=== PATIENT | female | born 1945 | race Caucasian/White ===

== ENCOUNTER 2017-03-15 18:07 | Emergency (ER) | payer MEDICARE ==
[2017-03-15 20:42] LABS: ADD MAN DIFF? NO
[2017-03-15 20:47] LABS: BASO % 0 % (0-3); EOS # 0.2 x10^3/uL (0.0-0.7); EOS % 2 % (0-3); HEMATOCRIT 40.4 % (36.0-47.0); HEMOGLOBIN 13.8 g/dL (12.0-15.5); LYMPH # 2.6 x10^3/uL (1.0-4.8); LYMPH % 25 % (24-48); MEAN CORPUSCULAR HEMOGLOBIN 32 pg (25-35); MEAN CORPUSCULAR HGB CONC 34 g/dL (31-37); MEAN CORPUSCULAR VOLUME 94 fL (79-100); MONO # 0.8 x10^3/uL (0.0-1.1); MONO % 7 % (0-9); NEUT # 6.9 x10^3uL (1.8-7.7); NEUT % 66 % (31-73); PLATELET COUNT 266 x10^3/uL (140-400); RED CELL DISTRIBUTION WIDTH 12.3 % (11.5-14.5); WHITE BLOOD COUNT 10.6 x10^3/uL (4.0-11.0)
[2017-03-15 20:55] LABS: ANION GAP 8 (6-14); BLOOD UREA NITROGEN 15 mg/dL (7-20); BUN/CREATININE RATIO 19 (6-20); CALCIUM 9.1 mg/dL (8.5-10.1); CARBON DIOXIDE 30 mmol/L (21-32); CHLORIDE 101 mmol/L (98-107); CREATININE 0.8 mg/dL (0.6-1.0); GFR 71.1; GLUCOSE 87 mg/dL (70-99); POTASSIUM 4.1 mmol/L (3.5-5.1); SODIUM 139 mmol/L (136-145)
[2017-03-15 21:01] LABS: ALBUMIN 3.5 g/dL (3.4-5.0); ALBUMIN/GLOBULIN RATIO 0.9 (1.0-1.7); ALK PHOS 86 U/L (46-116); ALT (SGPT) 20 U/L (14-59); AST (SGOT) 25 U/L (15-37); TOTAL BILIRUBIN 0.3 mg/dL (0.2-1.0); TOTAL PROTEIN 7.6 g/dL (6.4-8.2)
[2017-03-15 21:01] LABS: D-DIMER 0.81 ug/mlFEU (0.00-0.50)
[2017-03-15 21:04] LABS: TROPONINI < 0.017 ng/mL (0.000-0.055)
[2017-03-15 21:20] LABS: INFLUENZA A PATIENT NEGATIVE (NEGATIVE); INFLUENZA B PATIENT NEGATIVE (NEGATIVE); OBC FLU VALID
[2017-03-15] MEDS ORDERED: FUROSEMIDE 40 MG/4 ML VIAL. ×2 (21:26)
== END 2017-03-15 21:40 | disposition home or self-care (01) ==
LOC: ER 18:07
DX: J18.9 Pneumonia, unspecified organism (principal); R07.9 Chest pain, unspecified; I10 Essential (primary) hypertension; E11.36 Type 2 diabetes mellitus with diabetic cataract; Z88.0 Allergy status to penicillin; Z90.49 Acquired absence of other specified parts of digestive tract
CPT/HCPCS: 36415; 71046; 72072; 80053; 84484; 85025; 85379; 87804; 87804-59; 93005; 99285-25

== ENCOUNTER → 2017-06-06 | Outpatient (CLI) | payer MEDICARE ==
[~2017-06-06] MED LIST: GADOBUTROL 7.5 MMOL/7.5 ML VIAL IV
== END | disposition home or self-care (01) ==
LOC: MRI 12:26
DX: H91.91 Unspecified hearing loss, right ear (principal); H74.8X3 Other specified disorders of middle ear and mastoid, bilateral
CPT/HCPCS: 70553

== ENCOUNTER → 2017-06-26 | Outpatient (CLI) | payer MEDICARE ==
[~2017-06-26] MED LIST changes: -GADOBUTROL 7.5 MMOL/7.5 ML VIAL IV; +LIDOCAINE 1% Multi-Dose 50 ML VIAL. INJ
== END | disposition home or self-care (01) ==
LOC: US 12:55
DX: C50.912 Malignant neoplasm of unspecified site of left female breast (principal); Z88.0 Allergy status to penicillin; Z88.5 Allergy status to narcotic agent; Z98.42 Cataract extraction status, left eye; Z98.41 Cataract extraction status, right eye; Z96.1 Presence of intraocular lens; I25.10 Atherosclerotic heart disease of native coronary artery without angina pectoris; Z95.5 Presence of coronary angioplasty implant and graft; I10 Essential (primary) hypertension; Z90.49 Acquired absence of other specified parts of digestive tract; Z98.51 Tubal ligation status; M19.90 Unspecified osteoarthritis, unspecified site; F41.9 Anxiety disorder, unspecified; Z72.89 Other problems related to lifestyle; F17.200 Nicotine dependence, unspecified, uncomplicated
CPT/HCPCS: 19081; 19083; 76942; 77065; 88305; 88342; C1713

== ENCOUNTER → 2017-07-17 | Outpatient (CLI) | payer MEDICARE | END | disposition home or self-care (01) | LOC: KCIC CT 10:54 | DX: C34.90 Malignant neoplasm of unspecified part of unspecified bronchus or lung (principal); I25.10 Atherosclerotic heart disease of native coronary artery without angina pectoris; I10 Essential (primary) hypertension; E78.00 Pure hypercholesterolemia, unspecified; Z87.891 Personal history of nicotine dependence | CPT/HCPCS: 71250 ==

== ENCOUNTER 2017-07-31 08:18 | Outpatient (CLI) | payer MEDICARE ==
[2017-07-31 08:41] LABS: ADD MAN DIFF? NO
[2017-07-31 08:44] LABS: BASO # 0.1 x10^3/uL (0.0-0.2); BASO % 1 % (0-3); EOS # 0.1 x10^3/uL (0.0-0.7); EOS % 0 % (0-3); HEMATOCRIT 39.2 % (36.0-47.0); HEMOGLOBIN 13.1 g/dL (12.0-15.5); LYMPH # 1.9 x10^3/uL (1.0-4.8); LYMPH % 13 % (24-48); MEAN CORPUSCULAR HEMOGLOBIN 31 pg (25-35); MEAN CORPUSCULAR HGB CONC 33 g/dL (31-37); MEAN CORPUSCULAR VOLUME 93 fL (79-100); MONO # 1.1 x10^3/uL (0.0-1.1); MONO % 8 % (0-9); NEUT # 11.7 x10^3uL (1.8-7.7); NEUT % 79 % (31-73); PLATELET COUNT 303 x10^3/uL (140-400); RED BLOOD COUNT 4.22 x10^6/uL (3.50-5.40); RED CELL DISTRIBUTION WIDTH 12.8 % (11.5-14.5); WHITE BLOOD COUNT 14.9 x10^3/uL (4.0-11.0)
[2017-07-31 09:01] LABS: INR 1.1 (0.8-1.1); PROTHROMBIN TIME PATIENT 13.5 SEC (11.7-14.0)
[2017-07-31 09:02] LABS: PARTIAL THROMBOPLASTIN TIME 31 SEC (24-38)
[2017-07-31] MEDS ORDERED: LIDOCAINE 2%/EPI 1:100,000 20 ML VIAL. (09:06)
[2017-07-31] MEDS ORDERED: HEPARIN PF 500 UNIT/5 ML DISP.SYRIN. IV (09:07)
[2017-07-31] MEDS ORDERED: MIDAZOLAM HCL/PF 2 MG/2 ML VIAL. (09:33)
[2017-07-31] MEDS ORDERED: fentaNYL PF VIAL 100 MCG/2 ML VIAL (09:34)
[2017-07-31] MEDS: MIDAZOLAM HCL/PF 2 MG/2 ML VIAL. IV (09:45)
[2017-07-31] MEDS: HEPARIN for IV BOLUS 10,000 UNIT/10 ML VIAL. IV (09:45)
[2017-07-31] MEDS: LIDOCAINE 2%/EPI 1:100,000 20 ML VIAL. IJ (09:45)
[2017-07-31] MEDS: fentaNYL PF VIAL 100 MCG/2 ML VIAL IV (09:45)
== END 2017-07-31 12:33 | disposition home or self-care (01) ==
LOC: INTRAD 08:18
DX: Z45.2 Encounter for adjustment and management of vascular access device (principal); C34.90 Malignant neoplasm of unspecified part of unspecified bronchus or lung; Z88.0 Allergy status to penicillin; Z88.5 Allergy status to narcotic agent; Z98.42 Cataract extraction status, left eye; Z98.41 Cataract extraction status, right eye; Z96.1 Presence of intraocular lens; I25.10 Atherosclerotic heart disease of native coronary artery without angina pectoris; Z95.5 Presence of coronary angioplasty implant and graft; I10 Essential (primary) hypertension; Z90.49 Acquired absence of other specified parts of digestive tract; Z98.51 Tubal ligation status; M19.90 Unspecified osteoarthritis, unspecified site; F41.9 Anxiety disorder, unspecified; Z72.89 Other problems related to lifestyle; F17.200 Nicotine dependence, unspecified, uncomplicated; Z79.01 Long term (current) use of anticoagulants
CPT/HCPCS: 36415; 36561; 76937; 77001; 85025; 85610; 85730; 99152; 99153; C1751; C1769; J1644; J1956; J2250; J3010; J3490

== ENCOUNTER → 2017-09-19 | Outpatient (CLI) | payer MEDICARE | END | disposition home or self-care (01) | LOC: US 15:50 | DX: R60.0 Localized edema (principal); I10 Essential (primary) hypertension; E11.9 Type 2 diabetes mellitus without complications; Z87.891 Personal history of nicotine dependence | CPT/HCPCS: 93970 ==

== ENCOUNTER → 2017-09-27 | Outpatient (CLI) | payer MEDICARE ==
[2017-07-31 11:45] VITALS: BP 135/60
[~2017-09-27] MED LIST changes: +ASPI-482 PO; +ATEN25TA PO; +ATOR10TA PO; +CHOL500045 PO; +CONTRAST GIVEN. MC PRN; +DOXY100T PO; +ERGO500027 PO; +FURO-69 PO; +HYDR1AMP2 IJ; +IOHEXOL 300 MG/ML 100ML VIAL. IV ONE; -LIDOCAINE 1% Multi-Dose 50 ML VIAL. INJ; +MULT1TAB52 PO; +ONDA2VIA3 IV; +ONDA4TAB7 PO; +ONDA8TAB9 PO; +OXYC-323 PO; +POTA20TA82 PO; +POTA25TA4 PO; +[UNRECOGNIZED DRUG - CODE] IV
--- NOTE | 2017-09-27 15:12 | RAD ---
CT of the chest with contrast 09/27/2017 INDICATION: Follow-up, small cell carcinoma. History of breast cancer. History of brain mass. COMPARISON STUDY: CT of the chest without contrast July 17, 2017. TECHNIQUE: Multidetector CT imaging of the chest was performed following the administration of IV contrast. FINDINGS: Heart size is normal. No pericardial effusion is identified. Scattered coronary calcification is noted. Thoracic aorta is unremarkable. In the interim since comparison study there is significant decrease in scattered mediastinal adenopathy. This is most evident in the pretracheal and precarinal regions where conglomeration of small lymph nodes has significantly decreased in size in the interim. A small subcarinal node or mass persists but is also significantly decreased in size. The previously seen right hilar mass with postobstructive atelectasis has markedly improved in the interim. In fact, a well-defined mass in the right hilum is not seen on today's study. Some soft tissue thickening surrounding structures of the right hilum remains present. Previously seen middle lobe obstructive atelectasis has essentially resolved in the interim. Areas of subpleural thickening seen in the lateral right upper lobe have also improved. No significant pleural effusion is identified. Severe apical predominant emphysematous changes are stable. No new pulmonary nodules or masses are identified in the appearance since comparison study. Mild dependent atelectasis is seen at the lung bases. No acute osseous abnormalities are identified. Compression deformity of L1 is unchanged. IMPRESSION: 1. Marked reduction in right hilar mass in the interim. A distinct hilar mass is not seen on today's exam. Some soft tissue thickening surrounded surrounding hilar structures is noted which as well as some soft tissue fullness in the subcarinal region in the area of the prior mass. Attention on follow-up studies recommended. 2. The previously seen lymph nodes persist, but significantly smaller in size. This is particularly evident in the precarinal and pretracheal regions. 3. Areas of subpleural thickening in the right lower lobe improved from prior study. 4. Continued CT surveillance recommended. 5. Other chronic changes are noted as described above. CT DOSING PQRS STATEMENT: One or more of the following individualized dose reduction techniques were utilized for this examination: 1. Automated exposure control 2. Adjustment of the mA and/or kV according to patient size 3. Use of iterative reconstruction technique in Electronically signed by: Garett Landon MD (09/27/2017 3:08 PM) [id number]
== END | disposition home or self-care (01) ==
LOC: CT 10:20
PROVIDERS: ATTEND Internal Medicine Hematology & Oncology
DX: R91.8 Other nonspecific abnormal finding of lung field (principal); E11.9 Type 2 diabetes mellitus without complications; I10 Essential (primary) hypertension; E78.00 Pure hypercholesterolemia, unspecified; I25.10 Atherosclerotic heart disease of native coronary artery without angina pectoris; Z85.3 Personal history of malignant neoplasm of breast; Z87.898 Personal history of other specified conditions; Z87.891 Personal history of nicotine dependence
CPT/HCPCS: 71260; Q9967

== ENCOUNTER → 2017-10-25 | Outpatient (CLI) | payer MEDICARE ==
[2017-07-31 11:45] VITALS: BP 135/60
[~2017-10-25] MED LIST changes: -CONTRAST GIVEN. MC PRN; +GADOBUTROL 7.5 MMOL/7.5 ML VIAL IV ONE; -IOHEXOL 300 MG/ML 100ML VIAL. IV ONE
--- NOTE | 2017-10-25 11:17 | RAD ---
EXAMINATION: Magnetic resonance imaging (MRI) of the brain and brainstem without and with contrast 10/25/2017 9:45 AM HISTORY: History of lung cancer. History of left parietal lesion measuring 8 mm. TECHNIQUE: Multiplanar multi-weighted MRI of the brain and brainstem was performed without and with intravenous contrast using the general brain protocol. Contrast information: 6 mL Gadolinium based contrast COMPARISON: MRI brain June 06, 2017 FINDINGS: The scalp and calvarium are normal. The superior sagittal sinus demonstrates normal venous flow. The corpus callosum is normal in shape and signal intensity. The posterior fossa is unremarkable. The pituitary and sella are normal. The brainstem and craniocervical junction are unremarkable. There are T2/FLAIR signal hyperintense foci in the periventricular and subcortical white matter most suggestive of mild chronic small vessel ischemic changes. There is a remote lacunar infarct in the right cerebellum. No suspicious enhancement is visualized. Previously seen rim-enhancing lesion in the left parietal lobe is not visualized on the current examination. Diffusion weighted images reveal no hyperintensities to suggest acute cerebral infarction. The susceptibility weighted sequences reveal no evidence of acute or chronic hemorrhage. The ventricles are normal in size and position without evidence of hydrocephalus. There are no areas of abnormal contrast enhancement. The paranasal sinuses are normal. Mild fluid noted within the right mastoid air cells. The orbits appear normal with exception of bilateral lens replacement. Normal flow voids are demonstrated in the carotid arteries and basilar artery. IMPRESSION: Previously seen rim-enhancing lesion in the left parietal lobe is not visualized on current examination. Differential consideration would include lacunar infarct versus metastatic lesion. Correlate with treatment history. No new enhancing lesions are identified. Electronically signed by: Vianey Rice MD (10/25/2017 11:14 AM) [id number]
== END | disposition home or self-care (01) ==
LOC: MRI 09:12
PROVIDERS: ATTEND Radiology Radiation Oncology
DX: C34.90 Malignant neoplasm of unspecified part of unspecified bronchus or lung (principal); I10 Essential (primary) hypertension; E11.9 Type 2 diabetes mellitus without complications; E78.00 Pure hypercholesterolemia, unspecified; I25.10 Atherosclerotic heart disease of native coronary artery without angina pectoris; Z87.891 Personal history of nicotine dependence; Z85.3 Personal history of malignant neoplasm of breast; Z90.49 Acquired absence of other specified parts of digestive tract; Z88.5 Allergy status to narcotic agent; Z88.0 Allergy status to penicillin
CPT/HCPCS: 70553; A9585

== ENCOUNTER → 2017-12-14 | Outpatient (CLI) | payer MEDICARE ==
[2017-07-31 11:45] VITALS: BP 135/60
[~2017-12-14] MED LIST changes: -GADOBUTROL 7.5 MMOL/7.5 ML VIAL IV ONE; +IOHEXOL 300 MG/ML 100ML VIAL. IV ONE
--- NOTE | 2017-12-14 16:44 | RAD ---
PQRS Compliance Statement: One or more of the following individualized dose reduction techniques were utilized for this examination: 1. Automated exposure control 2. Adjustment of the mA and/or kV according to patient size 3. Use of iterative reconstruction technique CT CHEST W/CONTRAST Clinical Indication: SMALL CELL LUNG CA Comparison: CT chest with contrast, September 27, 2017. Technique: Helical CT imaging of the chest is performed after 75 cc Omnipaque 300 IV contrast. Findings: Thyroid is symmetric. Right chest Port-A-Cath. AP window and left paratracheal enlarged lymph nodes are stable. Subcarinal lymph node is stable. Right hilar lymph nodes are slightly smaller. There are calcified left hilar lymph nodes. Coronary artery disease. Great vessels are stable. Cardiac size normal, no pericardial effusion. Central airways are patent. There is moderate centrilobular and paraseptal emphysema. Reticular opacities in the periphery are probably chronic. Subpleural opacity in the superior segment of the right lower lobe is unchanged. No recurrent right hilar mass is identified. Cholecystectomy. Ectatic abdominal aorta. Stable compression fracture superior endplate of L1. No osteolytic or blastic lesion is identified. IMPRESSION: 1. No recurrent right hilar mass. 2. Mediastinal lymph nodes are unchanged. Right hilar lymph nodes are slightly smaller. 3. Subpleural opacity in the right lower lobe is unchanged. 4. Moderate centrilobular and paraseptal emphysema. Electronically signed by: Anand Gonzalez MD (12/14/2017 4:41 PM) [facility]
== END | disposition home or self-care (01) ==
LOC: CT 10:20
PROVIDERS: ATTEND Internal Medicine Hematology & Oncology
DX: J43.2 Centrilobular emphysema (principal); M48.56XD Collapsed vertebra, not elsewhere classified, lumbar region, subsequent encounter for fracture with routine healing; I25.10 Atherosclerotic heart disease of native coronary artery without angina pectoris; I10 Essential (primary) hypertension; R59.0 Localized enlarged lymph nodes; R91.8 Other nonspecific abnormal finding of lung field; Z87.891 Personal history of nicotine dependence; Z79.01 Long term (current) use of anticoagulants; Z85.118 Personal history of other malignant neoplasm of bronchus and lung
CPT/HCPCS: 71260; Q9967

== ENCOUNTER → 2018-03-06 | Outpatient (CLI) | payer MEDICARE ==
[2017-07-31 11:45] VITALS: BP 135/60
[~2018-03-06] MED LIST changes: +GADOBUTROL 7.5 MMOL/7.5 ML VIAL IV ONE; -OXYC-323 PO; +OXYC1TAB15 PO
--- NOTE | 2018-03-06 10:56 | RAD ---
MRI Brain with and without contrast History: Vertigo, worsening headaches, lung cancer Technique: Multiplanar, multi sequential pre and postcontrast MR imaging was performed of the brain. Comparison: October 25, 2017; June 06, 2017 Findings: There is no restricted diffusion suggestive of recent infarct. There is no new midline shift or extra-axial fluid collection. As seen on axial image 14 series 10 and sagittal image 14 series 12, there is a small 2 mm focus of enhancement superior, medial right thalamus not clearly seen on previous exams. This is not associated with other signal abnormality or mass effect. There is small old lacunar infarct of the right cerebellum as seen previously. There is increased mild to moderate T2 and FLAIR hyperintense signal abnormality of the supratentorial parenchyma bilaterally, increased of the frontal parietal white matter. There is patchy minimal thickening and fluid of the mastoid air cells bilaterally. There has been lens surgery bilaterally. There is preservation of the major arterial intracranial flow voids at the skull base. There is very minimal patchy ethmoid air cell mucosal thickening. Impression: 1. There is a tiny focus of enhancement of the superior medial right thalamus not convincingly seen on previous exam otherwise difficult to characterize, small metastasis not excluded although focus of late subacute or early chronic ischemia also a consideration. Short-term imaging follow-up such as in 6 weeks may be beneficial. There is increased nonspecific, nonenhancing T2 and FLAIR hyperintense signal abnormality of the supratentorial white matter bilaterally, may be due to component of post therapeutic change. There is again small old lacunar infarct of the right cerebellum. Electronically signed by: Jonn Don MD (03/06/2018 10:51 AM) [id number]
--- NOTE | 2018-03-06 11:18 | RAD ---
PQRS Compliance Statement: One or more of the following individualized dose reduction techniques were utilized for this examination: 1. Automated exposure control 2. Adjustment of the mA and/or kV according to patient size 3. Use of iterative reconstruction technique CT chest with contrast March 06, 2018 INDICATION: Small cell lung cancer. Brain mass. COMPARISON: CT chest December 14, 2017 TECHNIQUE: Multiple axial CT images of the chest were obtained after the administration of intravenous contrast. Coronal and sagittal reformats are provided. 95 cc Omnipaque 300 was administered intravenously. FINDINGS: The thyroid gland is normal in appearance. Right chest wall infusion port catheter is identified with the distal tip terminating in the superior right atrium. AP window lymph node measures 16 x 11 mm, previously measuring similar. New right hilar lymphadenopathy measuring 3.2 x 2.6 cm. Infrahilar mass suggestive of hilar lymphadenopathy measures 4.1 x 2.0 cm, new from the prior examination. Precarinal lymph node has increased in size measuring 12 x 19 mm, previously subcentimeter. Heart size is within normal limits. There is no pericardial effusion. Three-vessel coronary artery calcifications are identified. Ascending thoracic aorta is normal in caliber. Subpleural interstitial changes are identified. There is moderate centrilobular pulmonary emphysema. Irregular mass in the subpleural right lower lobe has increased in size currently measuring 2.8 x 1.6 cm, previously measuring 2.4 x 1.4 cm. There is a new 3 mm groundglass nodule in the right lower lobe (series 2, image 36). There is new nodular opacity, more central to the wedge-shaped mass measuring 13 mm (series 2, image 32). There is a new subpleural nodule in the medial left lower lobe (series 2, image 20) measuring 7 mm. No suspicious adrenal nodularity. Visualized portions of the upper abdomen appear normal. Mild extrahepatic biliary ductal dilatation status post cholecystectomy, likely secondary to reservoir effect. Small supraumbilical fat-containing hernia. Superior endplate Schmorl's node is identified at L1 with 25 percent height loss, chronic. IMPRESSION: Increase in wedge-shaped mass in the subpleural right lower lobe measuring 2.8 x 1.6 cm, previously 2.4 x 1.4 cm. Increase in extensive right hilar lymphadenopathy and precarinal lymphadenopathy, as described in detail above. New 13 mm pulmonary nodule in the right lower lobe, more central to the wedge-shaped primary mass. Additional new nodules are visualized, as detailed above. Electronically signed by: Vianey Rice MD (03/06/2018 11:14 AM) [facility]
== END | disposition home or self-care (01) ==
LOC: MRI 08:55
PROVIDERS: ATTEND Internal Medicine Hematology & Oncology
DX: I63.81 Other cerebral infarction due to occlusion or stenosis of small artery (principal); J43.2 Centrilobular emphysema; R91.1 Solitary pulmonary nodule; R59.1 Generalized enlarged lymph nodes; K42.9 Umbilical hernia without obstruction or gangrene; M51.46 Schmorl's nodes, lumbar region; R29.890 Loss of height; Z90.49 Acquired absence of other specified parts of digestive tract; Z85.118 Personal history of other malignant neoplasm of bronchus and lung; Z85.841 Personal history of malignant neoplasm of brain
CPT/HCPCS: 70553; 71260; A9585; Q9967

== ENCOUNTER → 2018-04-13 | Outpatient (CLI) | payer MEDICARE ==
[2017-07-31 11:45] VITALS: BP 135/60
[~2018-04-13] MED LIST changes: +DEXA4TAB63 PO; +DILT120C85 PO; +FLUT16SP NS; -GADOBUTROL 7.5 MMOL/7.5 ML VIAL IV ONE; +HEPARIN PF 500 UNIT/5 ML DISP.SYRIN. IV ONE; +IOHEXOL 240 MG/ML 50ML VIAL. PO ONE; +LORA10TA3 PO; +OLAN10TA3 PO; +PEMB100V IV
--- NOTE | 2018-04-13 16:01 | RAD ---
CT study of the abdomen and pelvis with contrast Clinical indications: Right lower quadrant pain. History of lung cancer. COMPARISON: Chest CT dated March 06, 2018. CT study abdomen and pelvis dated January 25, 2013. TECHNIQUE: After IV infusion of 75 cc of Omnipaque 300, helical CT scanning of the abdomen and pelvis was performed. GI contrast was administered per mouth. PQRS compliance Statement One or more of the following individualized dose reduction techniques were utilized for this study: 1. Automated exposure control 2. Adjustment of the mA and/or kV according to patient size 3. Use of iterative reconstruction technique FINDINGS: No hepatic mass is seen. Intrahepatic ductal dilatation seen previously has decreased. The gallbladder as been surgically resected in the interim. There is persistent dilatation of the common bile duct measuring up to 11 mm. This is less prominent as well. There is persistent dilatation of the main pancreatic duct which also appears less prominent. Pancreas enhances homogeneously and no pancreatic mass is seen. Again seen is a saccular aneurysm of the anterior left side of the infrarenal portion of the abdominal aorta. Caliber of the abdominal aorta at this level is 2.7 cm and this is unchanged. No enlarged abdominal or pelvic lymphadenopathy is evident. No adrenal mass is seen. There is a renal mass involving the right renal collecting system and anterior medial aspect of the right kidney. This mass measures 3.7 cm transversely and 3.7 cm in vertical dimension and 3.2 cm in AP dimension. Therefore, a mass may represent renal collecting system neoplasm or renal cell neoplasm or metastatic lesion. There is moderate hydronephrosis proximal to it. There is a small subcapsular hematoma along the inferior medial edge of the right kidney. These findings are new. There is a small complex nodule within the upper pole of the left kidney measuring 1.6 cm. This is solid and this is new. No hydronephrosis is seen on this side. Urinary bladder wall is smooth. There is soft tissue thickening of the rectum. No obstructive bowel pattern is evident. No free air or free fluid or mesenteric edema is seen. Again seen is a wedge-shaped infiltrate of the inferior aspect right middle lobe and pleural-based nodule of the medial aspect of the right lower lobe. These were seen previously on chest CT. See that report. There is a compression fracture superior endplate of L1. Not seen on previous abdomen pelvis CT but was seen on the previous chest CT and is unchanged. No lytic process is seen. IMPRESSION: New finding of bilateral renal lesions. Right renal mass results in obstructive hydronephrosis on right side. Therefore, differential diagnosis is collecting system neoplasm versus renal cell carcinoma versus metastatic disease from lung cancer. Differential diagnosis of the upper pole left renal lesion is small renal cell carcinoma or metastatic nodule. There is a new finding of a small subcapsular hematoma of the medial inferior aspect of the right kidney. Lung base findings as seen on previous chest CT dated March 06, 2018. History of lung cancer. Wall thickening of the rectum. Recommend correlation with digital rectal examination. This could be due to redundant rectal mucosa or neoplasm. Improvement of dilatation of the main pancreatic duct and biliary tree. Patient has had cholecystectomy in the interim. The extra hepatic biliary tree remains mildly dilated which may be due to the reservoir effect after cholecystectomy. Correlation with liver function tests is recommended. Stable infrarenal abdominal aortic saccular aneurysm. Electronically signed by: Toñito Grossman MD (04/13/2018 3:58 PM) [facility]
== END | disposition home or self-care (01) ==
LOC: CT 08:16
PROVIDERS: ATTEND Internal Medicine Hematology & Oncology
DX: S37.011A Minor contusion of right kidney, initial encounter (principal); I71.4 Abdominal aortic aneurysm, without rupture; N28.89 Other specified disorders of kidney and ureter; N13.39 Other hydronephrosis; M48.56XA Collapsed vertebra, not elsewhere classified, lumbar region, initial encounter for fracture; R91.1 Solitary pulmonary nodule; R91.8 Other nonspecific abnormal finding of lung field; Z85.118 Personal history of other malignant neoplasm of bronchus and lung; X58.XXXA Exposure to other specified factors, initial encounter; Y93.89 Activity, other specified; Y92.89 Other specified places as the place of occurrence of the external cause; Y99.8 Other external cause status
CPT/HCPCS: 74177; Q9966; Q9967

== ENCOUNTER → 2018-06-04 | Outpatient (CLI) | payer MEDICARE ==
[2017-07-31 11:45] VITALS: BP 135/60
[~2018-06-04] MED LIST changes: +GADOBUTROL 7.5 MMOL/7.5 ML VIAL IV ONE; -HEPARIN PF 500 UNIT/5 ML DISP.SYRIN. IV ONE; -IOHEXOL 240 MG/ML 50ML VIAL. PO ONE; -IOHEXOL 300 MG/ML 100ML VIAL. IV ONE
--- NOTE | 2018-06-04 11:24 | RAD ---
MRI of the Brain without and with Contrast 06/04/2018 Clinical History: History of metastatic lung cancer. Worsening headaches, vertigo. Technique: Unenhanced T1-weighted sagittal and axial and FLAIR, T2-weighted, gradient echo and diffusion-weighted axial images of the brain were obtained. After the intravenous administration of 5 cc of Gadavist, enhanced T1-weighted axial, sagittal and coronal images of the brain were obtained. Findings: Comparison study is dated 03/06/2018. There is generalized parenchymal atrophy. Patchy, confluent and multiple focal areas of abnormally increased signal intensity are seen within the periventricular and subcortical white matter of both cerebral hemispheres on the FLAIR and T2-weighted images consistent with areas of small vessel ischemic disease. Approximately 15 enhancing mass lesions consistent with metastasis are seen scattered throughout the brain parenchyma consistent with metastasis. These measure 2 mm to 8 mm in size. The largest lesion is superior to the right thalamus and has increased in size since the previous examination where it measured 3 mm in diameter. The remaining lesions are new. There is mild surrounding edema and associated mild mass effect. No midline shift is seen. There is no MRI evidence of acute ischemia/infarction. No extra-axial fluid collection is seen. Mild mucosal thickening in seen scattered throughout the paranasal sinuses. There is a moderate sized right mastoid effusion. A small left mastoid effusion is seen. Normal flow voids are seen within the major vascular structures surrounding the brain parenchyma. IMPRESSION: Interval progression of metastatic disease involving the brain parenchyma as discussed above. Electronically signed by: Carlos Maya MD (06/04/2018 11:21 AM) [id number]
== END | disposition home or self-care (01) ==
LOC: MRI 08:30
PROVIDERS: ATTEND Internal Medicine Hematology & Oncology
DX: C79.31 Secondary malignant neoplasm of brain (principal); C34.90 Malignant neoplasm of unspecified part of unspecified bronchus or lung; Z88.0 Allergy status to penicillin; Z87.891 Personal history of nicotine dependence
CPT/HCPCS: 70553; A9585

== ENCOUNTER 2018-06-19 15:57 | Inpatient (IN) | payer MEDICARE ==
[~2018-06-19] VITALS: Ht 160 cm; Wt 53.5 kg
[~2018-06-19 15:57] MED LIST changes: -DEXA4TAB63 PO; -DILT120C85 PO; -FLUT16SP NS; -GADOBUTROL 7.5 MMOL/7.5 ML VIAL IV ONE; -LORA10TA3 PO
[2018-06-19] MEDS ORDERED: dilTIAZem INJ 125 MG in IV DEXTROSE 5% 100ML 100 ML IV ONE (16:15)
[2018-06-19] MEDS ORDERED: dilTIAZem IV PUSH 25 MG/5 ML VIAL IVP ONE (16:15)
[2018-06-19 16:26] LABS: BASO % 0 % (0-3); EOS % 0 % (0-3); HEMATOCRIT 35.8 % (36.0-47.0); HEMOGLOBIN 12.2 g/dL (12.0-15.5); LYMPH # 0.7 x10^3/uL (1.0-4.8); LYMPH % 4 % (24-48); MEAN CORPUSCULAR HEMOGLOBIN 32 pg (25-35); MEAN CORPUSCULAR HGB CONC 34 g/dL (31-37); MEAN CORPUSCULAR VOLUME 96 fL (79-100); MONO # 0.8 x10^3/uL (0.0-1.1); MONO % 5 % (0-9); NEUT # 14.4 x10^3uL (1.8-7.7); NEUT % 90 % (31-73); PLATELET COUNT 295 x10^3/uL (140-400); RED BLOOD COUNT 3.75 x10^6/uL (3.50-5.40); RED CELL DISTRIBUTION WIDTH 13.6 % (11.5-14.5)
[2018-06-19] MEDS ORDERED: IV NORMAL SALINE 1000ML BAG 1,000 ML IV ONE (16:30)
--- NOTE | 2018-06-19 16:33 | RAD ---
Portable chest, 06/19/2018: HISTORY: Chest pain Comparison is made to a study from 03/15/2017. A right Port-A-Cath extends to the level the atriocaval junction. The heart size is normal. There are moderate patchy right opacities in the right middle and lower lobes which have worsened since the previous study. There are ongoing chronic reticulonodular opacities in both lungs. No definite pleural fluid is seen. IMPRESSION: 1. Worsening moderate patchy right basilar opacities likely representing progression of the patient's known lung malignancy and associated pneumonitis. 2. Mild diffuse reticulonodular interstitial opacities in both lungs compatible with fibrosis. Electronically signed by: Hans Barron MD (06/19/2018 4:30 PM) [facility]
[2018-06-19 16:37] LABS: CALCIUM 9.2 mg/dL (8.5-10.1); CREATININE 1.1 mg/dL (0.6-1.0); POTASSIUM 3.4 mmol/L (3.5-5.1)
[2018-06-19 16:44] LABS: ALBUMIN 2.5 g/dL (3.4-5.0); ALBUMIN/GLOBULIN RATIO 0.5 (1.0-1.7); TOTAL BILIRUBIN 0.6 mg/dL (0.2-1.0); TOTAL PROTEIN 7.2 g/dL (6.4-8.2)
[2018-06-19 17:36] LABS: % BANDS 13 % (0-9); % LYMPHS 3 % (24-48); % MONOS 7 % (0-10); % SEGS 77 % (35-66); PLT ESTIMATE ADEQUATE (ADEQUATE)
[2018-06-19 17:38] LABS: TOXIC GRANULATION SLIGHT
[2018-06-19] MEDS ORDERED: ASPIRIN CHEWABLE 81 MG TABLET. PO ONE (17:45)
--- NOTE | 2018-06-19 17:54 | PHYS DOC ---
Past Medical History Past Medical History: Cancer, Diabetes-Type II, High Cholesterol, Hypertension Additional Past Medical Histor: metastatic lung cancer Past Surgical History: Cholecystectomy Additional Past Surgical Histo: Cataracts, CARDIAC STENT, HERNIA Alcohol Use: Occasionally Drug Use: None Adult General Chief Complaint Chief Complaint: CHEST PAIN HPI HPI Patient is a 73 year old male patient with history of metastatic lung cancer and currently on radiation therapy for brain who presents with complaining of chest pain and palpitation. Patient complaining of sudden onset of substernal heaviness and palpitations since yesterday afternoon as a constant problem a ssociated with shortness of breath, dizziness, generalized weakness. Patient states the pain radiated to her back and getting worse with movement and activity. Patient denies history of chest pain on palpitation and arrhythmia. Review of Systems Review of Systems Constitutional: Denies fever or chills [] Eyes: Denies change in visual acuity, redness, or eye pain [] HENT: Denies nasal congestion or sore throat [] Respiratory: Denies cough, reports shortness of breath [] Cardiovascular: No additional information not addressed in HPI [] GI: Denies abdominal pain, nausea, vomiting, bloody stools or diarrhea [] : Denies dysuria or hematuria [] Musculoskeletal: Denies back pain or joint pain [] Integument: Denies rash or skin lesions [] Neurologic: Denies headache, focal weakness or sensory changes [] Endocrine: Denies polyuria or polydipsia [] All other systems were reviewed and found to be within normal limits, except as documented in this note. Current Medications Current Medications Current Medications Medications (Trade) Dose Ordered Sig/[facility] Start Time Stop Time Status Last Admin Dose Admin Diltiazem HCl (Cardizem Iv Push) 20 mg 1X ONCE 06/19/18 16:15 06/19/18 16:16 DC 06/19/18 16:26 20 MG Diltiazem HCl 125 mg/Dextrose 125 ml @ 10 mls/hr 1X ONCE 06/19/18 16:15 06/20/18 04:44 06/19/18 16:25 10 MLS/HR Sodium Chloride 1,000 ml @ 1,000 mls/hr 1X ONCE 06/19/18 16:30 06/19/18 17:29 06/19/18 16:26 1,000 MLS/HR Allergies Allergies Allergies Coded Allergies Type Severity Reaction Last Updated Verified Penicillins Allergy Intermediate 06/20/17 Yes oxycodone Allergy Intermediate Nausea and Vomiting 06/20/17 Yes Physical Exam Physical Exam Constitutional: Moderate distress, non-toxic appearance, anxious. HENT: Normocephalic, atraumatic, oropharynx dry. Eyes: PERRLA, EOMI, conjunctiva normal, no discharge. [] Neck: Normal range of motion, no tenderness, supple, no stridor. [] Cardiovascular: Irregularly irregular rhythm with tachycardia Lungs & Thorax: Right basilar rhonchi without respiratory distress Abdomen: Bowel sounds normal, soft, no tenderness, no masses, no pulsatile masses. [] Skin: Warm, dry, no erythema, no rash. [] Back: No tenderness, no CVA tenderness. [] Extremities: No tenderness, no cyanosis, no clubbing, ROM intact, no edema. [] Neurologic: Alert and oriented X 3, normal motor function, normal sensory function, no focal deficits noted. [] Psychologic: Affect anxious, judgement normal, mood normal. [] Current Patient Data Vital Signs Vital Signs Date Time Temp Pulse Resp B/P (MAP) Pulse Ox O2 Delivery O2 Flow Rate FiO2 06/19/18 16:30 97.6 155 18 137/82 (100) 92 Nasal Cannula 2.0 97.6 Lab Values Laboratory Tests Test 06/19/18 16:20 White Blood Count 16.0 x10^3/uL (4.0-11.0) H Red Blood Count 3.75 x10^6/uL (3.50-5.40) Hemoglobin 12.2 g/dL (12.0-15.5) Hematocrit 35.8 % (36.0-47.0) L Mean Corpuscular Volume 96 fL (79-100) Mean Corpuscular Hemoglobin 32 pg (25-35) Mean Corpuscular Hemoglobin Concent 34 g/dL (31-37) Red Cell Distribution Width 13.6 % (11.5-14.5) Platelet Count 295 x10^3/uL (140-400) Neutrophils (%) (Auto) 90 % (31-73) H Lymphocytes (%) (Auto) 4 % (24-48) L Monocytes (%) (Auto) 5 % (0-9) Eosinophils (%) (Auto) 0 % (0-3) Basophils (%) (Auto) 0 % (0-3) Neutrophils # (Auto) 14.4 x10^3uL (1.8-7.7) H Lymphocytes # (Auto) 0.7 x10^3/uL (1.0-4.8) L Monocytes # (Auto) 0.8 x10^3/uL (0.0-1.1) Eosinophils # (Auto) 0.0 x10^3/uL (0.0-0.7) Basophils # (Auto) 0.0 x10^3/uL (0.0-0.2) Platelet Estimate Pending Sodium Level 128 mmol/L (136-145) L Potassium Level 3.4 mmol/L (3.5-5.1) L Chloride Level 91 mmol/L (98-107) L Carbon Dioxide Level 28 mmol/L (21-32) Anion Gap 9 (6-14) Blood Urea Nitrogen 17 mg/dL (7-20) Creatinine 1.1 mg/dL (0.6-1.0) H Estimated GFR (Cockcroft-Gault) 49.0 BUN/Creatinine Ratio 15 (6-20) Glucose Level 247 mg/dL (70-99) H Calcium Level 9.2 mg/dL (8.5-10.1) Total Bilirubin 0.6 mg/dL (0.2-1.0) Aspartate Amino Transferase (AST) 57 U/L (15-37) H Alanine Aminotransferase (ALT) 51 U/L (14-59) Alkaline Phosphatase 126 U/L (46-116) H Creatine Kinase 78 U/L (26-192) Troponin I Quantitative < 0.017 ng/mL (0.000-0.055) VO-Mja-G-Type Natriuretic Peptide 1097 pg/mL (0-124) H Total Protein 7.2 g/dL (6.4-8.2) Albumin 2.5 g/dL (3.4-5.0) L Albumin/Globulin Ratio 0.5 (1.0-1.7) L Lipase 205 U/L (73-393) Laboratory Tests 06/19/18 16:20 Laboratory Tests 06/19/18 16:20 EKG EKG EKG interpreted by me. EKG at 1605 showed atrial fibrillation with RVR at rate of 144, no acute ST and T-wave abnormalities. Repeat EKG at 1645 showed normal sinus rhythm at rate of 78, acute abnormalities, no acute ST and T-wave abnormalities, Radiology/Procedures Radiology/Procedures [][facility] [address] [place] [address] IMAGING REPORT Signed PATIENT: YVETTE WATKINS ACCOUNT: [id number] : 1945 LOCATION: ER AGE: 73 SEX: F EXAM STATUS: PRE ER ORD. PHYSICIAN: UOG IVERSON MD REASON: chest pain x 1 day PROCEDURE: PORTABLE CHEST 1V Portable chest, 06/19/2018: HISTORY: Chest pain Comparison is made to a study from 03/15/2017. A right Port-A-Cath extends to the level the atriocaval junction. The heart size is normal. There are moderate patchy right opacities in the right middle and lower lobes which have worsened since the previous study. There are ongoing chronic reticulonodular opacities in both lungs. No definite pleural fluid is seen. IMPRESSION: 1. Worsening moderate patchy right basilar opacities likely representing progression of the patient's known lung malignancy and associated pneumonitis. 2. Mild diffuse reticulonodular interstitial opacities in both lungs compatible with fibrosis. Electronically signed by: Hans Barron MD (06/19/2018 4:30 PM) [facility] DICTATED and SIGNED BY: HANS BARRON MD DATE: 06/19/18 1630 Course & Med Decision Making Course & Med Decision Making Pertinent Labs and Imaging studies reviewed. (See chart for details) Evaluation of patient in ER showed 73-year-old female patient with history of metastatic lung cancer to the brain on radiation therapy and complaining of chest pain and palpitations since yesterday. Patient had atrial flutter patient with RVR that responded very well to Cardizem bolus of 15 mg with converting to sinus rhythm at rate of 80s. Cardiac enzyme was unremarkable. Patient had several cardiac risk factors and abnormal electrolytes. Plan to admit patient for more evaluation. Patient requiring admission for further evaluation and treatment. Discussed with Dr. Hammond) who is in agreement with admission. Di scussed findings and plan with patient and family, who acknowledge understanding and agreement. Dragon Disclaimer Dragon Disclaimer This electronic medical record was generated, in whole or in part, using a voice recognition dictation system. Departure Departure Impression: Primary Impression: Atrial fibrillation with RVR Additional Impressions: Acute chest pain CHF (congestive heart failure) Lung cancer metastatic to brain Hyperglycemia, drug-induced Hyponatremia Disposition: 09 ADMITTED INPATIENT (at 1740) Admitting Physician: Tita Cano (accepted admission at 1739) Condition: IMPROVED Referrals: TITA CANO MD (PCP) Critical Care Time Critical care time was 60 minutes exclusive of procedures. Problem Qualifiers Additional Impressions: CHF (congestive heart failure) Heart failure type: unspecified Heart failure chronicity: unspecified Qualified Codes: I50.9 - Heart failure, unspecified UGO IVERSON MD June 19, 2018 17:54
[2018-06-19 18:40] VITALS: BP 127/99
--- NOTE | 2018-06-19 20:00 | NUR ---
Pt was admitted to unit from ER with c/o SOB, chest pressure, pt was in AFIB RVR in ER, 15mg IV cardizem bolus given and gtt initiated. Pt converted to SR in ER and gtt was titrated off. Pt is A/Ox4, up with minimal assist, currently on 2L NC, but tolerates RA well. Pt currently has lung CA with probably mets to brain, is a pt of Dr. Friedman currently for radiation treatments, that she receives at [facility]. Pt has no current c/o pain, H&P/med rec completed, no family at bedside, spoke with admitting physician, Dr. Cano, medications restarted, orders received. VSS, call light within reach, bed in low/locked position, will continue to monitor for status changes.
[2018-06-19] MEDS ORDERED: ACETAMINOPHEN 500 MG TABLET PO PRN (20:45)
[2018-06-19] MEDS: ATORVASTATIN CALCIUM 40 MG TABLET. PO SCH (20:56)
[2018-06-19 22:39] LABS: BILIRUBIN,URINE NEGATIVE (NEG); CLARITY,URINE CLEAR; COLOR,URINE YELLOW; NITRITE,URINE NEGATIVE (NEG); PROTEIN,URINE NEGATIVE (NEG-TRACE)
[2018-06-19 22:45] LABS: RBC,URINE 0 /HPF (0-2); SQUAMOUS EPITHELIAL CELL,UR MOD /LPF
[2018-06-19 22:46] LABS: BACTERIA,URINE MANY /HPF (0-FEW)
[2018-06-19 23:14] VITALS: BP 120/63
[2018-06-20 02:55] VITALS: BP 101/52
[2018-06-20 06:34] LABS: BASO % 0 % (0-3); EOS # 0.1 x10^3/uL (0.0-0.7); EOS % 1 % (0-3); HEMATOCRIT 30.8 % (36.0-47.0); HEMOGLOBIN 10.6 g/dL (12.0-15.5); LYMPH # 0.6 x10^3/uL (1.0-4.8); LYMPH % 6 % (24-48); MEAN CORPUSCULAR HEMOGLOBIN 33 pg (25-35); MEAN CORPUSCULAR HGB CONC 34 g/dL (31-37); MEAN CORPUSCULAR VOLUME 96 fL (79-100); MONO # 0.8 x10^3/uL (0.0-1.1); MONO % 7 % (0-9); NEUT # 9.7 x10^3uL (1.8-7.7); NEUT % 87 % (31-73); PLATELET COUNT 250 x10^3/uL (140-400); RED BLOOD COUNT 3.21 x10^6/uL (3.50-5.40); RED CELL DISTRIBUTION WIDTH 13.9 % (11.5-14.5); WHITE BLOOD COUNT 11.2 x10^3/uL (4.0-11.0)
[2018-06-20 06:41] LABS: CALCIUM 8.3 mg/dL (8.5-10.1); CREATININE 0.9 mg/dL (0.6-1.0); GFR 61.7; POTASSIUM 4.1 mmol/L (3.5-5.1)
--- NOTE | 2018-06-20 06:58 | EKG ---
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
[2018-06-20 07:00] VITALS: BP 138/76
--- NOTE | 2018-06-20 07:00 | EKG ---
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
--- NOTE | 2018-06-20 07:43 | PDOC ---
PROGRESS NOTES Subjective Subjective Patient reports that chest pain resolved last evening after tx with Cardizem yesterday. Objective Objective Vital Signs Date Time Temp Pulse Resp B/P (MAP) Pulse Ox O2 Delivery O2 Flow Rate FiO2 06/20/18 02:55 97.9 72 18 101/52 (68) 96 Nasal Cannula 2.0 97.9 Intake and Output 06/20/18 07:00 Intake Total 200 ml Output Total 1000 ml Balance -800 ml Intake Oral 200 ml Output Urine Total 1000 ml Physical Exam Abdomen: Normal bowel sounds, Soft, No tenderness Heart: Regular rate Extremities: No edema General: Alert, Oriented X3, No acute distress Lungs: Other (BS moderately decreased throughout, no wheezes heard. Chest wall with few firm irregular nodules.) Assessment Assessment Problems Medical Problems: (1) Acute chest pain Status: Acute (2) CHF (congestive heart failure) Status: Acute (3) Hyperglycemia, drug-induced Status: Acute (4) Hyponatremia Status: Acute (5) Lung cancer metastatic to brain Status: Acute Plan Plan of Care 1. Afib with RVR - resolved after tx with Cardizem yesterday, has maintained sinus rhythm overnight. Continue to monitor, Cardiology consult pending. 2. metastatic lung cancer - patient presently receiving whole brain radiation for palliation of multiple metastases to brain. Is also on Prednisone but doesn't know dose. No systemic chemotx presently as she had progression of disease while on Keytruda. 3. HTN - usually takes low dose Atenolol, will hold this for now and await Cardiology input. 4. hyponatremia - possible SIADH? Has not had this previously. Improved after IV fluids last night. 5. hyperglycemia - patient does not have hx of DM, probably due to Prednisone. Comment Review of Relevant I have reviewed the following items guille (where applicable) has been applied. Labs Laboratory Tests Test 06/19/18 16:20 06/19/18 20:33 06/19/18 22:20 06/20/18 04:30 White Blood Count 16.0 x10^3/uL (4.0-11.0) 11.2 x10^3/uL (4.0-11.0) Red Blood Count 3.75 x10^6/uL (3.50-5.40) 3.21 x10^6/uL (3.50-5.40) Hemoglobin 12.2 g/dL (12.0-15.5) 10.6 g/dL (12.0-15.5) Hematocrit 35.8 % (36.0-47.0) 30.8 % (36.0-47.0) Mean Corpuscular Volume 96 fL (79-100) 96 fL (79-100) Mean Corpuscular Hemoglobin 32 pg (25-35) 33 pg (25-35) Mean Corpuscular Hemoglobin Concent 34 g/dL (31-37) 34 g/dL (31-37) Red Cell Distribution Width 13.6 % (11.5-14.5) 13.9 % (11.5-14.5) Platelet Count 295 x10^3/uL (140-400) 250 x10^3/uL (140-400) Neutrophils (%) (Auto) 90 % (31-73) 87 % (31-73) Lymphocytes (%) (Auto) 4 % (24-48) 6 % (24-48) Monocytes (%) (Auto) 5 % (0-9) 7 % (0-9) Eosinophils (%) (Auto) 0 % (0-3) 1 % (0-3) Basophils (%) (Auto) 0 % (0-3) 0 % (0-3) Neutrophils # (Auto) 14.4 x10^3uL (1.8-7.7) 9.7 x10^3uL (1.8-7.7) Lymphocytes # (Auto) 0.7 x10^3/uL (1.0-4.8) 0.6 x10^3/uL (1.0-4.8) Monocytes # (Auto) 0.8 x10^3/uL (0.0-1.1) 0.8 x10^3/uL (0.0-1.1) Eosinophils # (Auto) 0.0 x10^3/uL (0.0-0.7) 0.1 x10^3/uL (0.0-0.7) Basophils # (Auto) 0.0 x10^3/uL (0.0-0.2) 0.0 x10^3/uL (0.0-0.2) Segmented Neutrophils % 77 % (35-66) Band Neutrophils % 13 % (0-9) Lymphocytes % 3 % (24-48) Monocytes % 7 % (0-10) Toxic Granulation Slight Platelet Estimate Adequate (ADEQUATE) Sodium Level 128 mmol/L (136-145) 138 mmol/L (136-145) Potassium Level 3.4 mmol/L (3.5-5.1) 4.1 mmol/L (3.5-5.1) Chloride Level 91 mmol/L (98-107) 101 mmol/L (98-107) Carbon Dioxide Level 28 mmol/L (21-32) 32 mmol/L (21-32) Anion Gap 9 (6-14) 5 (6-14) Blood Urea Nitrogen 17 mg/dL (7-20) 12 mg/dL (7-20) Creatinine 1.1 mg/dL (0.6-1.0) 0.9 mg/dL (0.6-1.0) Estimated GFR (Cockcroft-Gault) 49.0 61.7 BUN/Creatinine Ratio 15 (6-20) Glucose Level 247 mg/dL (70-99) 98 mg/dL (70-99) Calcium Level 9.2 mg/dL (8.5-10.1) 8.3 mg/dL (8.5-10.1) Total Bilirubin 0.6 mg/dL (0.2-1.0) Aspartate Amino Transf (AST/SGOT) 57 U/L (15-37) Alanine Aminotransferase (ALT/SGPT) 51 U/L (14-59) Alkaline Phosphatase 126 U/L (46-116) Creatine Kinase 78 U/L (26-192) Troponin I Quantitative < 0.017 ng/mL (0.000-0.055) 0.069 ng/mL (0.000-0.055) 0.040 ng/mL (0.000-0.055) SU-Zsi-K-Type Natriuretic Peptide 1097 pg/mL (0-124) Total Protein 7.2 g/dL (6.4-8.2) Albumin 2.5 g/dL (3.4-5.0) Albumin/Globulin Ratio 0.5 (1.0-1.7) Lipase 205 U/L (73-393) Glucose (Fingerstick) 132 mg/dL (70-99) Urine Collection Type Unknown Urine Color Yellow Urine Clarity Clear Urine pH 6.0 Urine Specific [place] <=1.005 Urine Protein Negative mg/dL (NEG-TRACE) Urine Glucose (UA) Negative mg/dL (NEG) Urine Ketones (Stick) Negative mg/dL (NEG) Urine Blood Negative (NEG) Urine Nitrite Negative (NEG) Urine Bilirubin Negative (NEG) Urine Urobilinogen Dipstick 1.0 mg/dL (0.2 mg/dL) Urine Leukocyte Esterase Trace (NEG) Urine RBC 0 /HPF (0-2) Urine WBC 1-4 /HPF (0-4) Urine Squamous Epithelial Cells Mod /LPF Urine Bacteria Many /HPF (0-FEW) Test 06/20/18 07:12 Glucose (Fingerstick) 109 mg/dL (70-99) Laboratory Tests Test 06/19/18 16:20 06/19/18 20:33 06/19/18 22:20 06/20/18 04:30 White Blood Count 16.0 x10^3/uL (4.0-11.0) 11.2 x10^3/uL (4.0-11.0) Red Blood Count 3.75 x10^6/uL (3.50-5.40) 3.21 x10^6/uL (3.50-5.40) Hemoglobin 12.2 g/dL (12.0-15.5) 10.6 g/dL (12.0-15.5) Hematocrit 35.8 % (36.0-47.0) 30.8 % (36.0-47.0) Mean Corpuscular Volume 96 fL (79-100) 96 fL (79-100) Mean Corpuscular Hemoglobin 32 pg (25-35) 33 pg (25-35) Mean Corpuscular Hemoglobin Concent 34 g/dL (31-37) 34 g/dL (31-37) Red Cell Distribution Width 13.6 % (11.5-14.5) 13.9 % (11.5-14.5) Platelet Count 295 x10^3/uL (140-400) 250 x10^3/uL (140-400) Neutrophils (%) (Auto) 90 % (31-73) 87 % (31-73) Lymphocytes (%) (Auto) 4 % (24-48) 6 % (24-48) Monocytes (%) (Auto) 5 % (0-9) 7 % (0-9) Eosinophils (%) (Auto) 0 % (0-3) 1 % (0-3) Basophils (%) (Auto) 0 % (0-3) 0 % (0-3) Neutrophils # (Auto) 14.4 x10^3uL (1.8-7.7) 9.7 x10^3uL (1.8-7.7) Lymphocytes # (Auto) 0.7 x10^3/uL (1.0-4.8) 0.6 x10^3/uL (1.0-4.8) Monocytes # (Auto) 0.8 x10^3/uL (0.0-1.1) 0.8 x10^3/uL (0.0-1.1) Eosinophils # (Auto) 0.0 x10^3/uL (0.0-0.7) 0.1 x10^3/uL (0.0-0.7) Basophils # (Auto) 0.0 x10^3/uL (0.0-0.2) 0.0 x10^3/uL (0.0-0.2) Segmented Neutrophils % 77 % (35-66) Band Neutrophils % 13 % (0-9) Lymphocytes % 3 % (24-48) Monocytes % 7 % (0-10) Toxic Granulation Slight Platelet Estimate Adequate (ADEQUATE) Sodium Level 128 mmol/L (136-145) 138 mmol/L (136-145) Potassium Level 3.4 mmol/L (3.5-5.1) 4.1 mmol/L (3.5-5.1) Chloride Level 91 mmol/L (98-107) 101 mmol/L (98-107) Carbon Dioxide Level 28 mmol/L (21-32) 32 mmol/L (21-32) Anion Gap 9 (6-14) 5 (6-14) Blood Urea Nitrogen 17 mg/dL (7-20) 12 mg/dL (7-20) Creatinine 1.1 mg/dL (0.6-1.0) 0.9 mg/dL (0.6-1.0) Estimated GFR (Cockcroft-Gault) 49.0 61.7 BUN/Creatinine Ratio 15 (6-20) Glucose Level 247 mg/dL (70-99) 98 mg/dL (70-99) Calcium Level 9.2 mg/dL (8.5-10.1) 8.3 mg/dL (8.5-10.1) Total Bilirubin 0.6 mg/dL (0.2-1.0) Aspartate Amino Transf (AST/SGOT) 57 U/L (15-37) Alanine Aminotransferase (ALT/SGPT) 51 U/L (14-59) Alkaline Phosphatase 126 U/L (46-116) Creatine Kinase 78 U/L (26-192) Troponin I Quantitative < 0.017 ng/mL (0.000-0.055) 0.069 ng/mL (0.000-0.055) 0.040 ng/mL (0.000-0.055) UT-Xon-E-Type Natriuretic Peptide 1097 pg/mL (0-124) Total Protein 7.2 g/dL (6.4-8.2) Albumin 2.5 g/dL (3.4-5.0) Albumin/Globulin Ratio 0.5 (1.0-1.7) Lipase 205 U/L (73-393) Glucose (Fingerstick) 132 mg/dL (70-99) Urine Collection Type Unknown Urine Color Yellow Urine Clarity Clear Urine pH 6.0 Urine Specific [place] <=1.005 Urine Protein Negative mg/dL (NEG-TRACE) Urine Glucose (UA) Negative mg/dL (NEG) Urine Ketones (Stick) Negative mg/dL (NEG) Urine Blood Negative (NEG) Urine Nitrite Negative (NEG) Urine Bilirubin Negative (NEG) Urine Urobilinogen Dipstick 1.0 mg/dL (0.2 mg/dL) Urine Leukocyte Esterase Trace (NEG) Urine RBC 0 /HPF (0-2) Urine WBC 1-4 /HPF (0-4) Urine Squamous Epithelial Cells Mod /LPF Urine Bacteria Many /HPF (0-FEW) Test 06/20/18 07:12 Glucose (Fingerstick) 109 mg/dL (70-99) Medications Current Medications Diltiazem HCl (Cardizem Iv Push) 20 mg 1X ONCE IVP Last administered on 06/19/18at 16:26; Start 06/19/18 at 16:15; Stop 06/19/18 at 16:16; Status DC Diltiazem HCl 125 mg/Dextrose 125 ml @ 10 mls/hr 1X ONCE IV Last administered on 06/19/18at 16:25; Start 06/19/18 at 16:15; Stop 06/20/18 at 04:45; Status DC Sodium Chloride 1,000 ml @ 1,000 mls/hr 1X ONCE IV Last administered on 06/19/18at 16:26; Start 06/19/18 at 16:30; Stop 06/19/18 at 17:29; Status DC Aspirin (Children'S Aspirin) 324 mg 1X ONCE PO Last administered on 06/19/18at 17:45; Start 06/19/18 at 17:45; Stop 06/19/18 at 17:46; Status DC Acetaminophen (Tylenol) 1,000 mg PRN Q6HRS PRN PO pain; Start 06/19/18 at 20:45 Atorvastatin Calcium (Lipitor) 80 mg QHS PO Last administered on 06/19/18at 20:56; Start 06/19/18 at 21:00 Active Scripts Active Reported Lasix (Furosemide) 20 Mg Tablet 20 Mg PO DAILY Zyprexa (Olanzapine) 10 Mg Tablet 10 Mg PO HS Zofran (Ondansetron Hcl) 8 Mg Tablet 8 Mg PO BID PRN Potassium Chloride 20 Meq Tablet.er 20 Meq PO DAILY Multivitamins (Multivitamin) 1 Each Tablet 1 Each PO DAILY Lipitor (Atorvastatin Calcium) 10 Mg Tablet 80 Mg PO DAILY Aspir 81 (Aspirin) 81 Mg Tablet.dr 81 Mg PO DAILY Atenolol 25 Mg Tablet 25 Mg PO DAILY Vitals/I & O Vital Sign - Last 24 Hours 06/19/18 06/19/18 06/19/18 06/19/18 16:26 16:30 16:30 16:50 Temp 97.6 97.6 Pulse 153 150 155 80 Resp 18 B/P (MAP) 137/82 131/73 (92) 137/82 (100) 118/70 (86) Pulse Ox 91 92 94 O2 Delivery Nasal Cannula Nasal Cannula Nasal Cannula O2 Flow Rate 2.0 2.0 2.0 06/19/18 06/19/18 06/19/18 06/19/18 17:20 17:50 18:10 18:40 Temp 97.7 97.7 Pulse 82 90 80 83 Resp 18 B/P (MAP) 173/99 (123) 147/74 (98) 118/69 (85) 127/99 (108) Pulse Ox 96 95 97 94 O2 Delivery Nasal Cannula Nasal Cannula Nasal Cannula Nasal Cannula O2 Flow Rate 2.0 2.0 2.0 2.0 06/19/18 06/19/18 06/20/18 19:00 23:14 02:55 Temp 98.3 97.9 98.3 97.9 Pulse 67 72 Resp 18 18 B/P (MAP) 120/63 (82) 101/52 (68) Pulse Ox 95 96 O2 Delivery Nasal Cannula Nasal Cannula Nasal Cannula O2 Flow Rate 2.0 2.0 2.0 Intake and Output 06/19/18 06/19/18 06/20/18 15:00 23:00 07:00 Intake Total 200 ml Output Total 300 ml 700 ml Balance -300 ml -500 ml NEREIDA GUTIÉRREZ MD June 20, 2018 07:43
[2018-06-20] MEDS ORDERED: LORA10TA3 PO (07:53)
[2018-06-20] MEDS ORDERED: FLUT16SP NS (07:53)
[2018-06-20] MEDS: FLUTICASONE 50MCG/NASAL SPRAY 16GM BOTTLE. NS SCH (08:13)
[2018-06-20] MEDS: ASPIRIN ENTERIC COATED 81 MG TABLET.DR. PO SCH (08:13)
[2018-06-20] MEDS: CETIRIZINE HCL 10 MG TABLET. PO SCH (08:13)
[2018-06-20] MEDS ORDERED: ONDANSETRON ODT 4 MG TAB.RAPDIS. PO PRN (08:15)
--- NOTE | 2018-06-20 09:09 | HP ---
ADMIT DATE: 06/19/2018 CHIEF COMPLAINT: Chest pain. HISTORY OF PRESENT ILLNESS: The patient is a 73-year-old female with a history of metastatic lung cancer, who presented to the Emergency Room with the above complaint. She first had the onset of symptoms on the day prior to admission. She had the abrupt onset of chest pain and pressure while at home. Her symptoms lasted a few minutes and then resolved. She was able to sleep that night and pursue her usual activities the next day; however, on the evening of this admission her symptoms reoccurred with the abrupt onset of chest pain and pressure that radiated across the entire chest and up into her neck. These feelings persisted and she also felt short of breath, so she came to the Emergency Room. Initial evaluation showed her to be in atrial fibrillation with rapid ventricular response. She was treated with Cardizem and admitted for further care. PAST MEDICAL HISTORY: Metastatic small cell lung cancer, hypertension, hyperlipidemia, coronary artery disease. PAST SURGICAL HISTORY: Cardiac stent placement in 1998, cholecystectomy, cataract removal, bilateral tubal ligation, left inguinal hernia repair. ALLERGIES: The patient is allergic to PENICILLIN which causes hives and OXYCODONE, which caused a rash. HOME MEDICATIONS: Furosemide 20 mg daily, potassium 20 mEq daily, atenolol 25 mg daily, atorvastatin 80 mg daily. Her chart also lists Zyprexa 10 mg daily, but it is unclear if she is taking this and what doctor prescribed it for her. FAMILY HISTORY: Noncontributory. SOCIAL HISTORY: The patient is and lives at home with her . She has a long smoking history, but states that she quit smoking yesterday when she was admitted to the hospital. She does not drink alcohol to excess. REVIEW OF SYSTEMS: The patient denies fever or chills. She has had a chronic productive cough for some months now. She denies chest pain or palpitations at this time. She denies abdominal pain, nausea or vomiting. Her appetite has been fairly good. She had been having headaches, but these have improved since she started whole brain radiation treatment recently. She is known to have multiple metastatic sites in her brain from her lung cancer. Her mood has been good. She denies anxiety or depression and is not sure why she was prescribed Zyprexa. PHYSICAL EXAMINATION: GENERAL: The patient is alert and oriented x 3, sitting up comfortably in bed, in no acute distress. HEENT: PERRL, EOMI, sclerae clear. Oropharynx, mucous membranes moist. NECK: Supple without lymphadenopathy. CHEST: Breath sounds are moderately decreased throughout. No wheezes heard. CARDIOVASCULAR: Regular rhythm without murmur. Chest wall shows a few scattered firm irregular nodules. ABDOMEN: Soft, nontender, normoactive bowel sounds are present. EXTREMITIES: Without edema. ASSESSMENT AND PLAN: 1. Atrial fibrillation with rapid ventricular response. This is a new problem for the patient. It resolved promptly after treatment with Cardizem in the Emergency Room yesterday. The patient has maintained sinus rhythm overnight. We will continue to monitor on telemetry. A Cardiology consult is pending. 2. Metastatic lung cancer. The patient is presently receiving whole brain radiation for palliation of multiple metastases to the brain. She is also taking prednisone for this, but does not know the dose. She is not on systemic chemotherapy presently as she had progression of disease while on Keytruda. 3. Hypertension. This is usually well controlled with low dose atenolol. We will hold this at this time and await Cardiology input for medication adjustment. 4. Hyponatremia. The patient's sodium was 128 at admission yesterday, this could be possible syndrome of inappropriate antidiuretic hormone from her lung cancer, but she has not had this previously. Her sodium improved overnight after receiving IV normal saline and is now within the normal range, we will monitor this. 5. Hyperglycemia. The patient does not have a history of diabetes. Her blood sugar was quite elevated at admission, but is much improved now. Fingersticks and sliding scale are not presently indicated. NEREIDA GUTIÉRREZ MD DR: ARISTEO/christopher JOB#: [id number] / [id number] TASH
--- NOTE | 2018-06-20 09:27 | PDOC2 ---
OFE LEAL FLAKE DRIER 06/20/18 0927: CARDIAC CONSULT DATE OF CONSULT Date of Consult DATE: 06/20/18 TIME: 0850 REASON FOR CONSULT Reason for Consult: AFIB RVR REFERRING PHYSICIAN Referring Physician: Edward SOURCE Source: Chart review, Patient HISTORY OF PRESENT ILLNESS HISTORY OF PRESENT ILLNESS This ia a pleasant 73 yo female admitted for complains of palpitations. Reports that this happened the other day and was sustained and spontaneously terminated. Yesterday she finished her radiation treatment and went home and did some bills and started having palpitations and this was sustained longer and in ED noted with AFIB RVR which is new for her. No persistent dizziness but occasionally has vertigo. Reports no significnat SOA, leg pain or swelling. Reports that intermittent brief chest tightness mid chest but actaully preceded by intractable cough otherwise no persistent chest pain. Positive for decreased activity tolerance but significant sudden CONNELL. She does have metastatic lung CA and was given 3-6 months life expectancy. She is not in any pain. No prior hx of cardiac disease and past arrhythmias or VTE. PAST MEDICAL HISTORY Cardiovascular: CAD, HTN, Hyperlipidemia, Other (small infrarenal aortic aneurysm) CENTRAL NERVOUS SYSTEM: Vertigo, Other (brain mets) GI: No pertinent hx Heme/Onc: Cancer (lung CA with mets) Musculoskeletal: Osteoarthritis Infectious disease: No pertinent hx ENT: Allergic Rhinitis Renal/: Chronic renal insuff, Other (renal mass bilaterally, hydronephrosis) Endocrine: No pertinent hx Dermatology: No pertinent hx PAST SURGICAL HISTORY Past Surgical History: Cholecystectomy, Cataract Removal, Tubal Ligation, Other (PCI/stent in 1998; chest wall and breast biopsy; righ chest portacath) FAMILY HISTORY Family History: Hypertension SOCIAL HISTORY Smoke: <1 pack per day ALCOHOL: none Drugs: None Lives: with Family CURRENT MEDICATIONS CURRENT MEDICATIONS Current Medications Medications (Trade) Dose Ordered Sig/Alicia Route PRN Reason Start Time Stop Time Status Last Admin Dose Admin Diltiazem HCl (Cardizem Iv Push) 20 mg 1X ONCE IVP 06/19/18 16:15 06/19/18 16:16 DC 06/19/18 16:26 Diltiazem HCl 125 mg/Dextrose 125 ml @ 10 mls/hr 1X ONCE IV 06/19/18 16:15 06/20/18 04:45 DC 06/19/18 16:25 Sodium Chloride 1,000 ml @ 1,000 mls/hr 1X ONCE IV 06/19/18 16:30 06/19/18 17:29 DC 06/19/18 16:26 Aspirin (Children'S Aspirin) 324 mg 1X ONCE PO 06/19/18 17:45 06/19/18 17:46 DC 06/19/18 17:45 Atorvastatin Calcium (Lipitor) 80 mg QHS PO 06/19/18 21:00 06/19/18 20:56 Aspirin (Ecotrin) 81 mg DAILY PO 06/20/18 09:00 06/20/18 08:13 Fluticasone Propionate (Flonase) 2 spray DAILY NS 06/20/18 09:00 06/20/18 08:13 Cetirizine HCl (ZyrTEC) 10 mg DAILY PO 06/20/18 09:00 06/20/18 08:13 ALLERGIES ALLERGIES: Coded Allergies: Penicillins (Verified Allergy, Intermediate, 06/20/17) oxycodone (Verified Allergy, Intermediate, Nausea and Vomiting, 06/20/17) ROS Review of System 14 point ROS evaluated with pertinent positives noted per HPI PHYSICAL EXAM General: Alert, Oriented X3, Cooperative, No acute distress HEENT: Atraumatic, Mucous membr. moist/pink Lungs: Other (diminished bases) Heart: Regular rate (SR), Normal S1, Normal S2, Other (3/6 systolic murmur crescendo-decrescendo to TUNDE border) Abdomen: Soft, No tenderness Extremities: No cyanosis, Other (trace LE edema) Skin: No breakdown, No significant lesion Neuro: Normal speech, Sensation intact Psych/Mental Status: Mental status NL, Mood NL MUSCULOSKELETAL: Osteoarthritic changes both hands VITALS VITALS Vital Signs Date Time Temp Pulse Resp B/P (MAP) Pulse Ox O2 Delivery O2 Flow Rate FiO2 06/20/18 08:00 Nasal Cannula 2.0 06/20/18 07:00 97.5 69 28 138/76 (96) 93 97.5 LABS Lab: Laboratory Tests Test 06/19/18 16:20 06/19/18 20:33 06/19/18 22:20 06/20/18 04:30 White Blood Count 16.0 x10^3/uL (4.0-11.0) 11.2 x10^3/uL (4.0-11.0) Red Blood Count 3.75 x10^6/uL (3.50-5.40) 3.21 x10^6/uL (3.50-5.40) Hemoglobin 12.2 g/dL (12.0-15.5) 10.6 g/dL (12.0-15.5) Hematocrit 35.8 % (36.0-47.0) 30.8 % (36.0-47.0) Mean Corpuscular Volume 96 fL (79-100) 96 fL (79-100) Mean Corpuscular Hemoglobin 32 pg (25-35) 33 pg (25-35) Mean Corpuscular Hemoglobin Concent 34 g/dL (31-37) 34 g/dL (31-37) Red Cell Distribution Width 13.6 % (11.5-14.5) 13.9 % (11.5-14.5) Platelet Count 295 x10^3/uL (140-400) 250 x10^3/uL (140-400) Neutrophils (%) (Auto) 90 % (31-73) 87 % (31-73) Lymphocytes (%) (Auto) 4 % (24-48) 6 % (24-48) Monocytes (%) (Auto) 5 % (0-9) 7 % (0-9) Eosinophils (%) (Auto) 0 % (0-3) 1 % (0-3) Basophils (%) (Auto) 0 % (0-3) 0 % (0-3) Neutrophils # (Auto) 14.4 x10^3uL (1.8-7.7) 9.7 x10^3uL (1.8-7.7) Lymphocytes # (Auto) 0.7 x10^3/uL (1.0-4.8) 0.6 x10^3/uL (1.0-4.8) Monocytes # (Auto) 0.8 x10^3/uL (0.0-1.1) 0.8 x10^3/uL (0.0-1.1) Eosinophils # (Auto) 0.0 x10^3/uL (0.0-0.7) 0.1 x10^3/uL (0.0-0.7) Basophils # (Auto) 0.0 x10^3/uL (0.0-0.2) 0.0 x10^3/uL (0.0-0.2) Segmented Neutrophils % 77 % (35-66) Band Neutrophils % 13 % (0-9) Lymphocytes % 3 % (24-48) Monocytes % 7 % (0-10) Toxic Granulation Slight Platelet Estimate Adequate (ADEQUATE) Sodium Level 128 mmol/L (136-145) 138 mmol/L (136-145) Potassium Level 3.4 mmol/L (3.5-5.1) 4.1 mmol/L (3.5-5.1) Chloride Level 91 mmol/L (98-107) 101 mmol/L (98-107) Carbon Dioxide Level 28 mmol/L (21-32) 32 mmol/L (21-32) Anion Gap 9 (6-14) 5 (6-14) Blood Urea Nitrogen 17 mg/dL (7-20) 12 mg/dL (7-20) Creatinine 1.1 mg/dL (0.6-1.0) 0.9 mg/dL (0.6-1.0) Estimated GFR (Cockcroft-Gault) 49.0 61.7 BUN/Creatinine Ratio 15 (6-20) Glucose Level 247 mg/dL (70-99) 98 mg/dL (70-99) Calcium Level 9.2 mg/dL (8.5-10.1) 8.3 mg/dL (8.5-10.1) Total Bilirubin 0.6 mg/dL (0.2-1.0) Aspartate Amino Transf (AST/SGOT) 57 U/L (15-37) Alanine Aminotransferase (ALT/SGPT) 51 U/L (14-59) Alkaline Phosphatase 126 U/L (46-116) Creatine Kinase 78 U/L (26-192) Troponin I Quantitative < 0.017 ng/mL (0.000-0.055) 0.069 ng/mL (0.000-0.055) 0.040 ng/mL (0.000-0.055) VO-Ihe-E-Type Natriuretic Peptide 1097 pg/mL (0-124) Total Protein 7.2 g/dL (6.4-8.2) Albumin 2.5 g/dL (3.4-5.0) Albumin/Globulin Ratio 0.5 (1.0-1.7) Lipase 205 U/L (73-393) Glucose (Fingerstick) 132 mg/dL (70-99) Urine Collection Type Unknown Urine Color Yellow Urine Clarity Clear Urine pH 6.0 Urine Specific [place] <=1.005 Urine Protein Negative mg/dL (NEG-TRACE) Urine Glucose (UA) Negative mg/dL (NEG) Urine Ketones (Stick) Negative mg/dL (NEG) Urine Blood Negative (NEG) Urine Nitrite Negative (NEG) Urine Bilirubin Negative (NEG) Urine Urobilinogen Dipstick 1.0 mg/dL (0.2 mg/dL) Urine Leukocyte Esterase Trace (NEG) Urine RBC 0 /HPF (0-2) Urine WBC 1-4 /HPF (0-4) Urine Squamous Epithelial Cells Mod /LPF Urine Bacteria Many /HPF (0-FEW) Thyroid Stimulating Hormone (TSH) 0.347 uIU/mL (0.358-3.74) Test 06/20/18 07:12 Glucose (Fingerstick) 109 mg/dL (70-99) ASSESSMENT/PLAN ASSESSMENT/PLAN 1. AFIB RVR: new finding. Converted to SR overnight after IV bolus of cardizem. Multifactorial with lung CA the main culprit 2. SCLC: mets to brain and renal. Stage 4. on radiation therapy. 3. COPD with continued tobaccoism 4. HTN: controlled 5. HLP: on statin 6. CAD: clinically stable 7. TSH low possibly subclinical hyperthyroidism 8. Elevated trop: mild mainly due to arrhythmia. Peaked at 0.069, type 2 demand mediated. EKG post AFIB SR without acute changes by comparison 9. Hyponatremia: corrected with IV fluids 10. Murmur: possible Recommendations 1. TTE. Will wait for TTE and note any LV dysfunction and EF and will start either Cardizem CD 120 vs metoprolol 25 mg po BID rather than continue her home atenolol. 2. ASA for stroke prevention. Not a candidate for OAC with short life expectancy and brain lesion 3. Certainly predispose to PE but low clinical probability via presentation. Will check RV via TTE. JAYA ROPER MD 06/20/18 5485: CARDIAC CONSULT ASSESSMENT/PLAN ASSESSMENT/PLAN Patient seen and examined. Agree with TRUCK BRACER's assessment and plan. New onset atrial fibrillation with RVR, presently back in sinus rhythm. Start Cardizem. She is a poor candidate for long-term anticoagulation. 2-D echo showed normal LV function. Slight troponin elevation probably demand ischemia from RVR. No wall motion abnormalities noted on echo CAD status clinically stable Thank you for your consultation OFE LEAL APRN June 20, 2018 09:27 JAYA ROPER MD June 20, 2018 17:07
--- NOTE | 2018-06-20 10:57 | NUR ---
SS following for discharge planning. SS reviewed pt chart. Pt is from home with spouse and is currently requiring oxygen. No discharge needs noted at this time. SS will continue to follow for discharge planning.
[2018-06-20 11:00] VITALS: BP 143/78
--- NOTE | 2018-06-20 11:08 | CARD ---
MR#: [id number] Date of Study: 06/20/2018 Ordering Physician: OFE LEAL, Referring Physician: NEREIDA GUTIÉRREZ Tech: Karis Lantigua RENE APPROVED REPORT EXAM: Two-dimensional and M-mode echocardiogram with Doppler and color Doppler. Other Information Quality : Good INDICATION Atrial Fibrillation 2D DIMENSIONS RVDd2.5 (2.9-3.5cm)Left Atrium(2D)3.6 (1.6-4.0cm) IVSd0.9 (0.7-1.1cm)Aortic Root(2D)2.7 (2.0-3.7cm) LVDd4.9 (3.9-5.9cm)LVOT Diameter2.2 (1.8-2.4cm) PWd0.8 (0.7-1.1cm)LVDs3.0 (2.5-4.0cm) FS (%) 38.7 %SV76.0 ml LVEF(%)60.0 (>50%) Aortic Valve AoV Peak Steven.221.1cm/sAoV VTI47.8cm AO Peak GR.19.5mmHgLVOT Peak Steven.133.1cm/s AO Mean GR.12mmHgAVA (VMAX)2.19cm2 JOSSELYN (VTI)2.30cm2 Mitral Valve MV E Imgrorgn92.5cm/sMV DECEL PSBC162wj MV A Vfbqnxtw779.1cm/sE/A Ratio0.8 Tricuspid Valve TR P. Xgdqnjzr435ad/sRAP MAQYYJHG2npHg TR Peak Gr.02arWtNBIB81epVz Pulmonary Vein S1 Vanepqzr70.3cm/sD2 Qtxqorts95.4cm/s LEFT VENTRICLE The left ventricle is normal size. There is normal left ventricular wall thickness. The left ventricu lar systolic function is normal and the ejection fraction is within normal range. The Ejection Fracti on is 55-60%. There is normal LV segmental wall motion. Transmitral Doppler flow pattern is Grade I-a bnormal relaxation pattern. RIGHT VENTRICLE The right ventricle is normal size. The right ventricular systolic function is normal. ATRIA The left atrium size is normal. The right atrium size is normal. The interatrial septum is intact wit h no evidence for an atrial septal defect or patent foramen ovale as noted on 2-D or Doppler imaging. AORTIC VALVE The aortic valve is moderately calcified but opens well. Doppler and Color Flow revealed no significa nt aortic regurgitation. There is no significant aortic valvular stenosis. MITRAL VALVE The mitral valve is calcified but opens well. Posterior mitral annular calcification is mild. There i s no evidence of mitral valve prolapse. There is no mitral valve stenosis. Doppler and Color Flow rev ealed no mitral valve regurgitation noted. TRICUSPID VALVE The tricuspid valve is normal in structure and function. Doppler and Color Flow revealed mild tricusp id regurgitation.There is moderate pulmonary hypertension.The PA pressure was estimated at 43 mmHg. T here is no tricuspid valve stenosis. PULMONIC VALVE The pulmonic valve is not well visualized. Doppler and Color Flow revealed no pulmonic valvular regur gitation. There is no pulmonic valvular stenosis. GREAT VESSELS The aortic root is normal in size. The ascending aorta is normal in size. The IVC is normal in size a nd collapses >50% with inspiration. PERICARDIAL EFFUSION There is no evidence of significant pericardial effusion. Critical Notification Critical Value: No <Conclusion> The left ventricular systolic function is normal and the ejection fraction is within normal range. Th e Ejection Fraction is 55-60%. There is normal LV segmental wall motion. Doppler and Color Flow revealed mild tricuspid regurgitation.There is moderate pulmonary hypertension .The PA pressure was estimated at 43 mmHg. Signed by : Everardo Joshi, Electronically Approved : 06/20/2018 11:07:52
[2018-06-20] MEDS: DEXAMETHASONE 4 MG TABLET PO SCH ×2 (11:30→21:07)
--- NOTE | 2018-06-20 13:15 | PDOC ---
Provider Note Provider Note 73 yo woman with extensive small cell lung carcinoma dx 06/2017 with good initial response to chemo and previous prophylactic cranial radiation 11/2017 Later developed soft tissue progression in subcutaneous locations and symptomatic brain mets. Headaches better since beginning whole brain radiation last week. Day 5 of 10 planned treatments thus far. Seen initially in ER with severe central chest pain. Found to have atrial fib with rapid vent response. Stabilized on dexamethasone and began whole brain RT. Day 5 of 10 thus far. Chest pain nearly gone. Eating well. No back pain. Right sided GARCIA persist. Impression Relapsing small cell lung with symptomatic brain metastases. Will resume dexamethasone and radiation treatment today. JANAE PLAZA MD June 20, 2018 13:15
[2018-06-20 14:44] VITALS: BP 123/68
[2018-06-20 19:20] VITALS: BP 124/62
[2018-06-20] MEDS: ATORVASTATIN CALCIUM 40 MG TABLET. PO SCH (21:07)
[2018-06-20 22:54] VITALS: BP 141/77
[2018-06-21 03:00] VITALS: BP 133/72
[2018-06-21 07:00] VITALS: BP 125/68
--- NOTE | 2018-06-21 08:17 | PDOC ---
PROGRESS NOTES Subjective Subjective Patient without complaint, no further CP or palpitations. Ready to go home today. Objective Objective Vital Signs Date Time Temp Pulse Resp B/P (MAP) Pulse Ox O2 Delivery O2 Flow Rate FiO2 06/21/18 03:00 97.6 62 133/72 (92) 98 Nasal Cannula 2.0 97.6 06/20/18 22:54 22 Intake and Output 06/21/18 07:00 Intake Total 1340 ml Output Total 1400 ml Balance -60 ml Intake Oral 1340 ml Output Urine Total 1400 ml Physical Exam Abdomen: Normal bowel sounds, Soft, No tenderness Heart: Regular rate Extremities: No edema General: Alert, Oriented X3, No acute distress Lungs: Other (BS moderately decreased throughout but CTA) Assessment Assessment Problems Medical Problems: (1) Acute chest pain Status: Acute (2) CHF (congestive heart failure) Status: Acute (3) Hyperglycemia, drug-induced Status: Acute (4) Hyponatremia Status: Acute (5) Lung cancer metastatic to brain Status: Acute Plan Plan of Care 1. Afib with RVR - resolved and has not recurred. Home today on low dose Cardizem CD per Cardiology recommendation. ASA for anticoagulation. 2. 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 Continue Decadron per Dr Friedman. Patient hypoxic without O2, 6 minute walk ordered. 3. HTN - home on Cardizem instead of Atenolol. Comment Review of Relevant I have reviewed the following items guille (where applicable) has been applied. Labs Laboratory Tests Test 06/19/18 16:20 06/19/18 20:33 06/19/18 22:20 06/20/18 04:30 White Blood Count 16.0 x10^3/uL (4.0-11.0) 11.2 x10^3/uL (4.0-11.0) Red Blood Count 3.75 x10^6/uL (3.50-5.40) 3.21 x10^6/uL (3.50-5.40) Hemoglobin 12.2 g/dL (12.0-15.5) 10.6 g/dL (12.0-15.5) Hematocrit 35.8 % (36.0-47.0) 30.8 % (36.0-47.0) Mean Corpuscular Volume 96 fL (79-100) 96 fL (79-100) Mean Corpuscular Hemoglobin 32 pg (25-35) 33 pg (25-35) Mean Corpuscular Hemoglobin Concent 34 g/dL (31-37) 34 g/dL (31-37) Red Cell Distribution Width 13.6 % (11.5-14.5) 13.9 % (11.5-14.5) Platelet Count 295 x10^3/uL (140-400) 250 x10^3/uL (140-400) Neutrophils (%) (Auto) 90 % (31-73) 87 % (31-73) Lymphocytes (%) (Auto) 4 % (24-48) 6 % (24-48) Monocytes (%) (Auto) 5 % (0-9) 7 % (0-9) Eosinophils (%) (Auto) 0 % (0-3) 1 % (0-3) Basophils (%) (Auto) 0 % (0-3) 0 % (0-3) Neutrophils # (Auto) 14.4 x10^3uL (1.8-7.7) 9.7 x10^3uL (1.8-7.7) Lymphocytes # (Auto) 0.7 x10^3/uL (1.0-4.8) 0.6 x10^3/uL (1.0-4.8) Monocytes # (Auto) 0.8 x10^3/uL (0.0-1.1) 0.8 x10^3/uL (0.0-1.1) Eosinophils # (Auto) 0.0 x10^3/uL (0.0-0.7) 0.1 x10^3/uL (0.0-0.7) Basophils # (Auto) 0.0 x10^3/uL (0.0-0.2) 0.0 x10^3/uL (0.0-0.2) Segmented Neutrophils % 77 % (35-66) Band Neutrophils % 13 % (0-9) Lymphocytes % 3 % (24-48) Monocytes % 7 % (0-10) Toxic Granulation Slight Platelet Estimate Adequate (ADEQUATE) Sodium Level 128 mmol/L (136-145) 138 mmol/L (136-145) Potassium Level 3.4 mmol/L (3.5-5.1) 4.1 mmol/L (3.5-5.1) Chloride Level 91 mmol/L (98-107) 101 mmol/L (98-107) Carbon Dioxide Level 28 mmol/L (21-32) 32 mmol/L (21-32) Anion Gap 9 (6-14) 5 (6-14) Blood Urea Nitrogen 17 mg/dL (7-20) 12 mg/dL (7-20) Creatinine 1.1 mg/dL (0.6-1.0) 0.9 mg/dL (0.6-1.0) Estimated GFR (Cockcroft-Gault) 49.0 61.7 BUN/Creatinine Ratio 15 (6-20) Glucose Level 247 mg/dL (70-99) 98 mg/dL (70-99) Calcium Level 9.2 mg/dL (8.5-10.1) 8.3 mg/dL (8.5-10.1) Total Bilirubin 0.6 mg/dL (0.2-1.0) Aspartate Amino Transf (AST/SGOT) 57 U/L (15-37) Alanine Aminotransferase (ALT/SGPT) 51 U/L (14-59) Alkaline Phosphatase 126 U/L (46-116) Creatine Kinase 78 U/L (26-192) Troponin I Quantitative < 0.017 ng/mL (0.000-0.055) 0.069 ng/mL (0.000-0.055) 0.040 ng/mL (0.000-0.055) VS-Fsw-M-Type Natriuretic Peptide 1097 pg/mL (0-124) Total Protein 7.2 g/dL (6.4-8.2) Albumin 2.5 g/dL (3.4-5.0) Albumin/Globulin Ratio 0.5 (1.0-1.7) Lipase 205 U/L (73-393) Glucose (Fingerstick) 132 mg/dL (70-99) Urine Collection Type Unknown Urine Color Yellow Urine Clarity Clear Urine pH 6.0 Urine Specific [place] <=1.005 Urine Protein Negative mg/dL (NEG-TRACE) Urine Glucose (UA) Negative mg/dL (NEG) Urine Ketones (Stick) Negative mg/dL (NEG) Urine Blood Negative (NEG) Urine Nitrite Negative (NEG) Urine Bilirubin Negative (NEG) Urine Urobilinogen Dipstick 1.0 mg/dL (0.2 mg/dL) Urine Leukocyte Esterase Trace (NEG) Urine RBC 0 /HPF (0-2) Urine WBC 1-4 /HPF (0-4) Urine Squamous Epithelial Cells Mod /LPF Urine Bacteria Many /HPF (0-FEW) Thyroid Stimulating Hormone (TSH) 0.347 uIU/mL (0.358-3.74) Test 06/20/18 07:12 06/20/18 11:08 Glucose (Fingerstick) 109 mg/dL (70-99) 99 mg/dL (70-99) Laboratory Tests Test 06/20/18 11:08 Glucose (Fingerstick) 99 mg/dL (70-99) Medications Current Medications Diltiazem HCl (Cardizem Iv Push) 20 mg 1X ONCE IVP Last administered on 9at 16:26; Start 06/19/18 at 16:15; Stop 06/19/18 at 16:16; Status DC Diltiazem HCl 125 mg/Dextrose 125 ml @ 10 mls/hr 1X ONCE IV Last administered on 06/19/18at 16:25; Start 06/19/18 at 16:15; Stop 06/20/18 at 04:45; Status DC Sodium Chloride 1,000 ml @ 1,000 mls/hr 1X ONCE IV Last administered on 06/19/18at 16:26; Start 06/19/18 at 16:30; Stop 06/19/18 at 17:29; Status DC Aspirin (Children'S Aspirin) 324 mg 1X ONCE PO Last administered on 06/19/18at 17:45; Start 06/19/18 at 17:45; Stop 06/19/18 at 17:46; Status DC Acetaminophen (Tylenol) 1,000 mg PRN Q6HRS PRN PO pain Last administered on 06/21/18at 00:17; Start 06/19/18 at 20:45 Atorvastatin Calcium (Lipitor) 80 mg QHS PO Last administered on 06/20/18at 21:07; Start 06/19/18 at 21:00 Aspirin (Ecotrin) 81 mg DAILY PO Last administered on 06/20/18at 08:13; Start 06/20/18 at 09:00 Fluticasone Propionate (Flonase) 2 spray DAILY NS Last administered on 06/20/18 08:13; Start 06/20/18 at 09:00 Cetirizine HCl (ZyrTEC) 10 mg DAILY PO Last administered on 06/20/18 08:13; Start 06/20/18 at 09:00 Ondansetron HCl (Zofran Odt) 8 mg PRN BID PRN PO NAUSEA/VOMITING; Start 06/20/18 at 08:15 Dexamethasone (Decadron) 4 mg BID PO Last administered on 06/20/18at 21:07; Start 06/20/18 at 09:00 Diltiazem HCl (Cardizem 24hr Cd) 120 mg DAILY PO Last administered on 06/20/18at 14:14; Start 06/20/18 at 13:00 Active Scripts Active Fluticasone Propionate Nasal Post (Fluticasone Propionate) 16 Gm Post.susp 2 Post NS DAILY Loratadine 10 Mg Tablet 1 Tab PO DAILY Reported Lasix (Furosemide) 20 Mg Tablet 20 Mg PO DAILY Zyprexa (Olanzapine) 10 Mg Tablet 10 Mg PO HS Zofran (Ondansetron Hcl) 8 Mg Tablet 8 Mg PO BID PRN Potassium Chloride 20 Meq Tablet.er 20 Meq PO DAILY Multivitamins (Multivitamin) 1 Each Tablet 1 Each PO DAILY Lipitor (Atorvastatin Calcium) 10 Mg Tablet 80 Mg PO DAILY Aspir 81 (Aspirin) 81 Mg Tablet.dr 81 Mg PO DAILY Atenolol 25 Mg Tablet 25 Mg PO DAILY Vitals/I & O Vital Sign - Last 24 Hours 06/20/18 06/20/18 06/20/18 06/20/18 11:00 14:14 14:44 19:20 Temp 97.4 98.4 98.1 97.4 98.4 98.1 Pulse 65 73 73 75 Resp 24 16 19 B/P (MAP) 143/78 (99) 143/78 123/68 (86) 124/62 (82) Pulse Ox 98 94 O2 Delivery Nasal Cannula Room Air Nasal Cannula O2 Flow Rate 2.0 2.0 06/20/18 06/20/18 06/21/18 20:00 22:54 03:00 Temp 97.5 97.6 97.5 97.6 Pulse 68 62 Resp 22 B/P (MAP) 141/77 (98) 133/72 (92) Pulse Ox 97 98 O2 Delivery Nasal Cannula Nasal Cannula Nasal Cannula O2 Flow Rate 2.0 2.0 2.0 Intake and Output 06/20/18 06/20/18 06/21/18 15:00 23:00 07:00 Intake Total 680 ml 240 ml 420 ml Output Total 200 ml 1000 ml 200 ml Balance 480 ml -760 ml 220 ml Nutrition Consultation Dietary Evaluation: Recommendations by RD: Increase Calorie Intake, Protein supplementation Comments: REC liberalize diet to regular to allow more food options and promote PO intake REC Ensure TID (all flavors) Expected Outcomes/Goals: PO intake to meet >75% est needs Interpretation of weight loss: >20% in 1 year Malnutrition Findings: Food and Nutrition Intake (Mod: <75% est energy req 7days Weight Status: Appropriate NEREIDA GUTIÉRREZ MD June 21, 2018 08:17
[2018-06-21] MEDS ORDERED: DILT120C85 PO (08:20)
[2018-06-21] MEDS ORDERED: DEXA4TAB63 PO (08:20)
[2018-06-21] MEDS: ASPIRIN ENTERIC COATED 81 MG TABLET.DR. PO SCH (09:01)
[2018-06-21] MEDS: CETIRIZINE HCL 10 MG TABLET. PO SCH (09:01)
[2018-06-21] MEDS: FLUTICASONE 50MCG/NASAL SPRAY 16GM BOTTLE. NS SCH (09:02)
[2018-06-21] MEDS: DEXAMETHASONE 4 MG TABLET PO SCH (09:02)
--- NOTE | 2018-06-21 09:09 | PDOC ---
OFE LEAL RN FIELD 06/21/18 0909: CARDIO Progress Notes Date and Time Date of Service 06/21/2018 Time of Evaluation 0850 Subjective Subjective: No Chest Pain, No shortness of breath, No Palpitations Vitals Vitals Vital Signs Date Time Temp Pulse Resp B/P (MAP) Pulse Ox O2 Delivery O2 Flow Rate FiO2 06/21/18 07:00 98.2 70 125/68 (87) 97 Nasal Cannula 2.0 98.2 06/20/18 22:54 22 Weight Weight [ ] Input and Output Intake and Output Intake and Output 06/21/18 07:00 Intake Total 1340 ml Output Total 1400 ml Balance -60 ml Intake Oral 1340 ml Output Urine Total 1400 ml Laboratory Labs Laboratory Tests Test 06/20/18 11:08 Glucose (Fingerstick) 99 mg/dL (70-99) Physical Exam LUNGS: Other (diminished bases) Heart: S1S2, RRR (Sr no significnat ectopies overnight) Abdomen: Soft N/T Extremities: No Calf Tenderness Neurology: alert, oriented, follow commands Assessment Assessment 1. AFIB RVR: new finding. Maintaining SR with cardizem. EF and WM nml 2. SCLC: mets to brain and renal. Stage 4. on radiation therapy. 3. COPD with continued tobaccoism 4. HTN: controlled 5. HLP: on statin 6. CAD: clinically stable 7. Elevated trop: Peaked at 0.069, type 2 demand mediated due to arrhythmia Recommendations 1. Continue with cardizem CD 120 mg daily. No further atenolol 2. ASA for stroke prevention. Not a candidate for OAC with short life expectancy and brain lesion 3. Follow up 08/01 2:15PM 4. Needing supplemental O2, awaiting 6 min walk JAYA ROPER MD 06/21/18 1551: CARDIO Progress Notes Assessment Assessment Patient seen and examined. Agree with ARCHITECTURAL JOB CAPTAIN's assessment and plan. Maintaining sinus rhythm. Continue Cardizem. She is a poor candidate for long-term anticoagulation. Slight troponin elevation demand ischemia. 2-D echo showed normal LV function without any wall motion abnormalities. Okay for discharge from cardiac standpoint. OFE ELAL APRN June 21, 2018 09:09 JAYA ROPER MD June 21, 2018 15:51
[2018-06-21 11:00] VITALS: BP 138/67
--- NOTE | 2018-06-21 11:09 | DS ---
DATE OF DISCHARGE: 06/21/2018 CHIEF COMPLAINT: Chest pain and palpitations. HISTORY OF PRESENT ILLNESS: The patient is a 73-year-old female with metastatic lung cancer, who presented to the Emergency Room with the above complaint. She first had the onset of symptoms on the day prior to admission. She had the abrupt onset of chest pain and pressure while at home. Her symptoms last a few minutes and then resolved. She was able to sleep that night and pursue her usual activities the next day. However, her symptoms recurred on the evening of admission with the abrupt onset of chest pain and pressure that radiated across the entire chest and up into her neck. These feelings persisted and she also felt short of breath, so she came to the Emergency Room. Initial evaluation there showed her to be in atrial fibrillation with rapid ventricular response. She was treated with Cardizem and admitted for further care. HOSPITAL COURSE: The patient was admitted to the telemetry floor. She remained in sinus rhythm for the rest of her hospital stay. She was seen in consultation by Cardiology. An echocardiogram was done, which showed a preserved ejection fraction of 55% to 60% and moderate pulmonary hypertension. She was started on a low dose of Cardizem-CD per Cardiology recommendations and this will be continued after discharge. Anticoagulation will be with aspirin only due to the patient's significant comorbidities and increased risk of bleeding with her metastatic cancer. The patient has remained hypoxic on room air. A 6-minute walk was done and the patient had significant hypoxia on this, requiring O2 at 2L at rest and 4L with activity. Home oxygen was arranged for her. The patient's sodium was low at 128 at admission. This improved overnight and is now within the normal range. She had some hyperglycemia, which is thought to be due to the Decadron that she is on, as she does not have a history of diabetes. The patient is presently undergoing whole brain radiation for treatment of multiple brain metastases. She will continue these treatments as an outpatient with Dr. Friedman. FINAL DIAGNOSES: 1. Atrial fibrillation with rapid ventricular response. 2. Metastatic small cell lung cancer with hypoxia. 3. Hypertension. DISCHARGE MEDICATIONS: Cardizem CD 120 mg daily, dexamethasone 4 mg b.i.d., aspirin 81 mg daily, atorvastatin 80 mg daily, Flonase daily, furosemide 20 mg daily, loratadine 10 mg daily, multivitamin daily, Zofran 8 mg p.r.n. and potassium 20 mEq daily. Atenolol 25 mg has been discontinued. DISCHARGE FOLLOWUP: Followup is with Dr. Cano in 2 weeks. Follow up with Dr. Friedman as advised. NEREIDA CANO MD DR: ARISTEO/christopher JOB#: [id number] / [id number] TASH
--- NOTE | 2018-06-21 12:08 | NUR ---
SS following up with discharge planning. Order for oxygen received. SS phoned and faxed order for oxygen to [employer], ; fax [phone]. [facility] confirmed receipt of order. SS provided pt with oxygen tank for home.
--- NOTE | 2018-06-21 13:27 | NUR ---
Discharge Note: YVETTE WATKINS [address] Discharge instructions and discharge home medications reviewed with Patient and a copy given. All questions have been answered and understanding verbalized. The following instructions and handouts were given: radiation, medication, hypotension, follow up, and oxygen. Discontinued lines and drains: IV removed, no lines present. Patient discharged to home, left via wheelchair with family to private vehicle.
--- NOTE | 2018-06-21 17:34 | NUR ---
I was unable to reach the cardiology office to make an appointment with Dr. Taylor. The patient says she has the number and was instructed to make a follow up appointment in 1 month. She said she would call them tomorrow.
== END 2018-06-21 13:20 | disposition home or self-care (01) | DRG 308 ==
LOC: ER 15:57 → 2 NORTH 17:29
PROVIDERS: ADMIT Family Medicine; ATTEND Family Medicine
DX: I48.91 Unspecified atrial fibrillation (principal); J96.01 Acute respiratory failure with hypoxia; C34.90 Malignant neoplasm of unspecified part of unspecified bronchus or lung; C79.31 Secondary malignant neoplasm of brain; E87.1 Hypo-osmolality and hyponatremia; I13.0 Hypertensive heart and chronic kidney disease with heart failure and stage 1 through stage 4 chronic kidney disease, or unspecified chronic kidney disease; E78.00 Pure hypercholesterolemia, unspecified; E11.22 Type 2 diabetes mellitus with diabetic chronic kidney disease; I50.9 Heart failure, unspecified; E11.65 Type 2 diabetes mellitus with hyperglycemia; E78.5 Hyperlipidemia, unspecified; I25.10 Atherosclerotic heart disease of native coronary artery without angina pectoris; M19.90 Unspecified osteoarthritis, unspecified site; N18.9 Chronic kidney disease, unspecified; F17.210 Nicotine dependence, cigarettes, uncomplicated; I27.20 Pulmonary hypertension, unspecified; J44.9 Chronic obstructive pulmonary disease, unspecified; R09.02 Hypoxemia; T50.905A Adverse effect of unspecified drugs, medicaments and biological substances, initial encounter; Z90.49 Acquired absence of other specified parts of digestive tract; Z95.5 Presence of coronary angioplasty implant and graft; Z88.0 Allergy status to penicillin; Z88.6 Allergy status to analgesic agent; Z98.51 Tubal ligation status; Z82.49 Family history of ischemic heart disease and other diseases of the circulatory system; Y92.89 Other specified places as the place of occurrence of the external cause
CPT/HCPCS: 36415; 71045; 77412; 80048; 80053; 81001; 82550; 82962; 83690; 83880; 84443; 84484; 85007; 85025; 87086; 93005; 93306; 94618; 96361; 96365; 96375; J3490; J7030; J8540; 99285-25

== ENCOUNTER → 2018-07-06 | Outpatient (CLI) | payer MEDICARE ==
[2018-06-20 07:00] VITALS: BP 138/76
[~2018-07-06] MED LIST changes: +CONTRAST GIVEN. MC PRN; +DEXA4TAB63 PO; +DILT120C85 PO; +FLUT16SP NS; +IOHEXOL 240 MG/ML 50ML VIAL. PO ONE; +IOHEXOL 300 MG/ML 100ML VIAL. IV ONE; +LORA10TA3 PO; +SULF1TAB24 PO
--- NOTE | 2018-07-06 14:48 | RAD ---
CT of the chest, abdomen, and pelvis. 07/06/2018 INDICATION: Metastatic small cell cancer. COMPARISON STUDY: CT of the abdomen and pelvis April 13, 2018. CT of the chest with contrast March 06, 2018. TECHNIQUE: Multidetector CT imaging of the chest, abdomen, and pelvis was performed following the administration of IV contrast FINDINGS: Chest: Right internal jugular power port noted. Heart size is normal. There is a large mass in the right hilum extending in the mediastinum. This this is consistent with a significant increase in the previously seen right hilar mass as well as significant increase in mediastinal adenopathy, which is now confluent. The mass encases the right pulmonary artery. Mass narrows the right mainstem bronchus significantly. Obstruction of the bronchi supplying the middle lobe and lower lobe is seen with complete atelectasis of these lobes. There is a large right pleural effusion, likely malignant. Severe diffuse emphysematous changes are similar to comparison studies. The right hilar and mediastinal mass as well as the degree of compressive atelectasis and right pleural effusion have all significantly worsened in the interim. Interval development of multifocal hepatic lesions consistent with metastatic disease. Reference lesion can be seen on axial image 36 in the anterior right liver. Interval progression of bilateral renal masses. All previously seen masses have increased in size. New masses are also present bilaterally. Hydronephrosis involving the right kidney again noted, mildly increased, with mild decreased enhancement relative to the contralateral side consistent with some degree of obstructive uropathy. No gross bowel obstruction is identified. No pneumoperitoneum is seen. No significant free fluid is seen in the abdomen or pelvis. There is a new relatively hypodense mass appears to arise from the body of the pancreas measuring 2.5 cm in diameter (axial image 36). There is a new mass situated immediately posterior to the IVC at the confluence of the left renal vein and IVC (axial image 36). This measures approximately 3.5 cm in diameters likely reflects metastatic adenopathy Mild diffuse edema is seen. No acute osseous changes are seen. Stable compression deformity of L1 is noted. IMPRESSION: 1. Significant diffuse progression of metastatic disease 2. Increased right hilar lung mass extending into the mediastinum with narrowing of the right mainstem bronchus, and obliteration of the lower lobe and middle lobe bronchus with subsequent postobstructive atelectasis of those lobes. Large right pleural effusion now seen. 3. Multifocal, bilateral renal masses. New masses are now seen, and previously seen masses have significantly increased in size. Persistent right hydronephrosis with mild decreased enhancement suggesting some degree of obstructive uropathy. 4. New 2.5 cm mass in the body of the pancreas, likely metastatic disease 5. New multifocal hepatic hypodensities consistent with metastatic disease 6. New 3.5 cm mass posterior to the IVC at the confluence of the left renal vein, likely metastatic adenopathy CT DOSING PQRS STATEMENT: One or more of the following individualized dose reduction techniques were utilized for this examination: 1. Automated exposure control 2. Adjustment of the mA and/or kV according to patient size 3. Use of iterative reconstruction technique Electronically signed by: Garett Landon MD (07/06/2018 2:45 PM) [facility]
== END | disposition home or self-care (01) ==
LOC: CT 12:04
PROVIDERS: ATTEND Internal Medicine Hematology & Oncology
DX: C34.90 Malignant neoplasm of unspecified part of unspecified bronchus or lung (principal); C79.31 Secondary malignant neoplasm of brain; J98.11 Atelectasis; J90 Pleural effusion, not elsewhere classified; N28.89 Other specified disorders of kidney and ureter; N13.30 Unspecified hydronephrosis; K86.89 Other specified diseases of pancreas; J43.9 Emphysema, unspecified; K76.89 Other specified diseases of liver; R91.8 Other nonspecific abnormal finding of lung field; R59.0 Localized enlarged lymph nodes; I48.91 Unspecified atrial fibrillation; I12.9 Hypertensive chronic kidney disease with stage 1 through stage 4 chronic kidney disease, or unspecified chronic kidney disease; N18.9 Chronic kidney disease, unspecified; F17.200 Nicotine dependence, unspecified, uncomplicated; Z95.5 Presence of coronary angioplasty implant and graft
CPT/HCPCS: 71260; 74177; Q9967

== ENCOUNTER 2018-08-30 13:09 | Emergency (ER) | payer MEDICARE ==
[2018-08-30] VITALS (9 sets, daily range): BP systolic 80–118; BP diastolic 50–68
[~2018-08-30] VITALS: Ht 160 cm; Wt 45.4 kg
[~2018-08-30 13:09] MED LIST changes: -CONTRAST GIVEN. MC PRN; -IOHEXOL 240 MG/ML 50ML VIAL. PO ONE; -IOHEXOL 300 MG/ML 100ML VIAL. IV ONE; -SULF1TAB24 PO
--- NOTE | 2018-08-30 13:35 | PHYS DOC ---
Past Medical History Past Medical History: Cancer, Diabetes-Type II, High Cholesterol, Hypertension Additional Past Medical Histor: metastatic lung cancer Past Surgical History: Cholecystectomy Additional Past Surgical Histo: Cataracts, CARDIAC STENT, HERNIA Alcohol Use: Occasionally Drug Use: None Adult General Chief Complaint Chief Complaint: ABNORMAL LABS [facility] HPI Very unfortunate 73-year-old female with widely static small cell lung CVA who is currently undergoing chemotherapy presents from her oncologist office today secondary to a low blood count. According to the oncologist or her hemoglobin was in the 6 range. Patient states other than feeling weak she has not been ill. Her last chemotherapy treatment was about a week ago. She denies any fever chills or sweats. She's had no nausea or vomiting. She has not noticed any melena or hematemesis. His any abdominal discomfort. She denies any dysuria or gross hematuria. She's had no vaginal bleeding.[] Review of Systems Review of Systems Constitutional: Reports fatigue[] Eyes: Denies change in visual acuity, redness, or eye pain [] HENT: Denies nasal congestion or sore throat [] Respiratory: Denies cough or shortness of breath [] Cardiovascular: No additional information not addressed in HPI [] GI: Denies abdominal pain, nausea, vomiting, bloody stools or diarrhea [] : Denies dysuria or hematuria [] Musculoskeletal: Denies back pain or joint pain [] Integument: Denies rash or skin lesions [] Neurologic: Denies headache, focal weakness or sensory changes [] Endocrine: Denies polyuria or polydipsia [] All other systems were reviewed and found to be within normal limits, except as documented in this note. Allergies Allergies Allergies Coded Allergies Type Severity Reaction Last Updated Verified Penicillins Allergy Intermediate 06/20/17 Yes oxycodone Allergy Intermediate Nausea and Vomiting 06/20/17 Yes Physical Exam Physical Exam Constitutional: Well developed, well nourished, appears chronically ill. [] HENT: Normocephalic, atraumatic, bilateral external ears normal, oropharynx mois t, no oral exudates, nose normal. [] Eyes: PERRLA, EOMI, conjunctiva normal, no discharge. [] Neck: Normal range of motion, no tenderness, supple, no stridor. [] Cardiovascular:Heart rate regular rhythm, no murmur [] Lungs & Thorax: Bilateral breath sounds clear to auscultation [] Abdomen: Bowel sounds normal, soft, no tenderness, no masses, no pulsatile masses. [] Skin: No rash appears pale, alopecia[] Back: No tenderness, no CVA tenderness. [] Extremities: No tenderness, no cyanosis, no clubbing, ROM intact, no edema. [] Neurologic: Alert and oriented X 3, normal motor function, normal sensory f unction, no focal deficits noted. [] Psychologic: Depressed affect. [] Current Patient Data Vital Signs Vital Signs Date Time Temp Pulse Resp B/P (MAP) Pulse Ox O2 Delivery O2 Flow Rate FiO2 08/30/18 16:00 97.3 78 14 82/51 97.3 08/30/18 14:00 100 Room Air Lab Values Laboratory Tests Test 08/30/18 13:50 White Blood Count 13.8 x10^3/uL (4.0-11.0) H Red Blood Count 1.76 x10^6/uL (3.50-5.40) L Hemoglobin 5.8 g/dL (12.0-15.5) *L Hematocrit 16.8 % (36.0-47.0) *L Mean Corpuscular Volume 96 fL (79-100) Mean Corpuscular Hemoglobin 33 pg (25-35) Mean Corpuscular Hemoglobin Concent 35 g/dL (31-37) Red Cell Distribution Width 21.4 % (11.5-14.5) H Platelet Count 54 x10^3/uL (140-400) L Neutrophils (%) (Auto) 83 % (31-73) H Lymphocytes (%) (Auto) 7 % (24-48) L Monocytes (%) (Auto) 9 % (0-9) Eosinophils (%) (Auto) 0 % (0-3) Basophils (%) (Auto) 1 % (0-3) Neutrophils # (Auto) 11.5 x10^3/uL (1.8-7.7) H Lymphocytes # (Auto) 0.9 x10^3/uL (1.0-4.8) L Monocytes # (Auto) 1.3 x10^3/uL (0.0-1.1) H Eosinophils # (Auto) 0.0 x10^3/uL (0.0-0.7) Basophils # (Auto) 0.1 x10^3/uL (0.0-0.2) Platelet Estimate Pending Laboratory Tests 08/30/18 13:50 EKG EKG [] Radiology/Procedures Radiology/Procedures [] Course & Med Decision Making Course & Med Decision Making Pertinent Labs and Imaging studies reviewed. (See chart for details) [] Dragon Disclaimer Dragon Disclaimer This electronic medical record was generated, in whole or in part, using a voice recognition dictation system. Departure Departure Impression: Primary Impression: Symptomatic anemia Disposition: HOME, SELF-CARE Condition: IMPROVED Referrals: NEREIDA GUTIÉRREZ MD (PCP) Patient Instructions: Anemia, FAQs, Anemia, Nonspecific-Brief Additional Instructions: Follow with your oncologist next week for recheck. Return to the emergency department with any new or concerning symptoms LAYNE LOUIS DO Aug 30, 2018 13:35
[2018-08-30 14:26] LABS: MEAN CORPUSCULAR HEMOGLOBIN 33 pg (25-35); MEAN CORPUSCULAR HGB CONC 35 g/dL (31-37); MEAN CORPUSCULAR VOLUME 96 fL (79-100); PLATELET COUNT 54 x10^3/uL (140-400); RED BLOOD COUNT 1.76 x10^6/uL (3.50-5.40); RED CELL DISTRIBUTION WIDTH 21.4 % (11.5-14.5); WHITE BLOOD COUNT 13.8 x10^3/uL (4.0-11.0)
[2018-08-30 14:27] LABS: BASO # 0.1 x10^3/uL (0.0-0.2); BASO % 1 % (0-3); EOS % 0 % (0-3); LYMPH # 0.9 x10^3/uL (1.0-4.8); LYMPH % 7 % (24-48); MONO # 1.3 x10^3/uL (0.0-1.1); MONO % 9 % (0-9); NEUT # 11.5 x10^3/uL (1.8-7.7); NEUT % 83 % (31-73)
[2018-08-30 14:30] LABS: HEMATOCRIT 16.8 % (36.0-47.0); HEMOGLOBIN 5.8 g/dL (12.0-15.5)
[2018-08-30] MEDS ORDERED: IV NORMAL SALINE 500ML BAG 500 ML IV ONE (17:15)
[2018-08-30 18:09] LABS: % LYMPHS 5 % (24-48); % MONOS 8 % (0-10)
[2018-08-30 18:11] LABS: % BANDS 2 % (0-9); % METAS 3 % (0-0)
[2018-08-30 18:12] LABS: % SEGS 82 % (35-66)
[2018-08-30 18:14] LABS: PLT ESTIMATE DECREASED (ADEQUATE)
[2018-08-30 18:15] LABS: POLYCHROMASIA SLIGHT; SCHISTOCYTES OCC; TOXIC GRANULATION SLIGHT
== END 2018-08-30 21:58 | disposition home or self-care (01) ==
LOC: ER 13:09
DX: D64.9 Anemia, unspecified (principal); R53.1 Weakness; E11.9 Type 2 diabetes mellitus without complications; E78.00 Pure hypercholesterolemia, unspecified; I10 Essential (primary) hypertension; Z95.5 Presence of coronary angioplasty implant and graft; Z88.0 Allergy status to penicillin; Z88.5 Allergy status to narcotic agent
CPT/HCPCS: 36415; 36430; 85007; 85025; 86850; 86900; 86901; 86920; 99285; J7040; P9016

== ENCOUNTER 2018-09-03 15:49 | Emergency (ER) | payer MEDICARE ==
[~2018-09-03] VITALS: Ht 160 cm; Wt 45.4 kg
[2018-09-03 16:15] VITALS: BP 140/68
[2018-09-03] MEDS ORDERED: SULF1TAB24 PO (17:34)
--- NOTE | 2018-09-03 17:34 | PHYS DOC ---
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 Patient states she slipped and fell a couple days ago and they sent her here to get x-rays of the right foot. Patient denies any loss of consciousness when she fell. She describes the pain as mild and worse on weight bearing. Review of Systems Review of Systems Constitutional: Denies fever or chills [] Eyes: Denies change in visual acuity, redness, or eye pain [] HENT: Denies nasal congestion or sore throat [] Respiratory: Denies cough or shortness of breath [] Cardiovascular: No additional information not addressed in HPI [] GI: Denies abdominal pain, nausea, vomiting, bloody stools or diarrhea [] : Denies dysuria or hematuria [] Musculoskeletal: Reports right foot pain. Integument: Denies rash or skin lesions [] Neurologic: Denies headache, focal weakness or sensory changes [] All other systems were reviewed and found to be within normal limits, except as documented in this note. Allergies Allergies Allergies Coded Allergies Type Severity Reaction Last Updated Verified Penicillins Allergy Intermediate 06/20/17 Yes oxycodone Allergy Intermediate Nausea and Vomiting 06/20/17 Yes Physical Exam Physical Exam Constitutional: Thin appearing patient, no acute distress, non-toxic appearance. [] HENT: Normocephalic, atraumatic, bilateral external ears normal, oropharynx moist, no oral exudates, nose normal. [] Eyes: PERRLA, EOMI, conjunctiva normal, no discharge. [] Neck: Normal range of motion, no tenderness, supple, no stridor. [] Cardiovascular:Heart rate regular rhythm, no murmur [] Lungs & Thorax: Patient is on oxygen chronically, diminished breath sounds. Abdomen: Bowel sounds normal, soft, no tenderness, no masses, no pulsatile masses. [] Skin: Warm, dry, no erythema, no rash. [] Back: No tenderness, no CVA tenderness. [] Extremities: Bilateral lower extremities with chronic last 2 pitting edema. No obvious deformity. Tenderness on palpation on the top of the right foot along the third and fourth metatarsals. Full range of motion to the right toes.Right pedal pulse. Cap refill less than 2 seconds the right. There is trace erythema over the right foot, unable to take if this is bruising or early cellulitis due to the swelling, though there is no warmth to this region. Neurologic: Alert and oriented X 3, normal motor function, normal sensory function, no focal deficits noted. [] Psychologic: Affect normal, judgement normal, mood normal. [] Current Patient Data Vital Signs Vital Signs Date Time Temp Pulse Resp B/P (MAP) Pulse Ox O2 Delivery O2 Flow Rate FiO2 09/03/18 16:15 97.8 80 20 140/68 (92) 92 Nasal Cannula 3.0 97.8 EKG EKG [] Radiology/Procedures Radiology/Procedures [] Course & Med Decision Making Course & Med Decision Making Pertinent Labs and Imaging studies reviewed. (See chart for details) This is a 73-year-old female patient currently on chemotherapy who was sent from the oncologist office for right foot x-rays after falling over the weekend. There is trace erythema over the right foot along the third and fourth metatarsals right foot hard to tell if there is early cellulitis or bruising to the RLE considering chronic edema to her lower extremities. x-rays interpreted Dr. Dobbins are negative for any acute findings. D/c with Bactrim prophylax is. F/u with her PCP next week. Dragon Disclaimer Dragon Disclaimer This electronic medical record was generated, in whole or in part, using a voice recognition dictation system. Departure Departure Impression: Primary Impression: Right foot sprain Disposition: 01 HOME, SELF-CARE Condition: STABLE Referrals: NEREIDA GUTIÉRREZ MD (PCP) follow up this week Patient Instructions: Foot Sprain-Brief Additional Instructions: You were evaluated in the ER for right foot pain, your right foot x-rays are negative for any acute findings. You have trace erythema over your right foot, this could be bruising on early infection. We put you on antibiotics, ensure you take them to completion. Please follow-up with your doctor in the course of this week or next week. Scripts Sulfamethoxazole/Trimethoprim (BACTRIM DS TABLET) 1 Each Tablet 1 TAB PO BID, #20 TAB Prov: MUTUNGA,ROSS CVOR NURSE 09/03/18 Problem Qualifiers Primary Impression: Right foot sprain Encounter type: initial encounter Qualified Codes: S93.601A - Unspecified sprain of right foot, initial encounter ROSS [place]STON CVOR NURSE Sep 03, 2018 17:34
--- NOTE | 2018-09-04 04:29 | RAD ---
RIGHT FOOT AP LATERAL OBLIQUE Clinical Indication: Fall, pain. Comparison: None. Findings: There is no acute fracture or dislocation. The bony alignment is normal. Mineralization is normal. No bony erosion. Moderate calcaneal bone spurs are seen. There is moderate dorsal midfoot soft tissue swelling. There are multiple phleboliths of the distal calf. IMPRESSION: No acute fracture. Electronically signed by: Anand Gonzalez MD (09/04/2018 4:27 AM) [id number]
== END 2018-09-03 17:42 | disposition home or self-care (01) ==
LOC: ER 15:49
DX: S93.601A Unspecified sprain of right foot, initial encounter (principal); I10 Essential (primary) hypertension; E11.9 Type 2 diabetes mellitus without complications; E78.00 Pure hypercholesterolemia, unspecified; Z95.5 Presence of coronary angioplasty implant and graft; Z88.0 Allergy status to penicillin; Z88.5 Allergy status to narcotic agent; W01.0XXA Fall on same level from slipping, tripping and stumbling without subsequent striking against object, initial encounter; Y93.89 Activity, other specified; Y92.89 Other specified places as the place of occurrence of the external cause; Y99.8 Other external cause status
CPT/HCPCS: 73630; 99284